=== PATIENT | female | born 1980 | race Caucasian/White ===

== ENCOUNTER 2024-09-08 10:26 | Outpatient (CLI) | payer OTHER, SELFPAY ==
[2024-09-08 13:25] LABS: Basophils Absolute Auto 0.1 K/mm3 (0.0-0.1); Basophils Percent Auto 1.3 % (0.2-1.2); Eosinophils Absolute Auto 0.3 K/mm3 (0-0.3); Eosinophils Percent Auto 4.4 % (0-4.4); Hematocrit 43.2 % (37.0-52.0); Hemoglobin 13.6 g/dL (12.0-18.0); Immature Granulocyte Absolute 0.02 K/mm3 (0.00-0.031); Immature Granulocyte Percent A 0.3 % (0-0.5); Lymphocytes Absolute Auto 2.77 K/mm3 (0.9-3.2); Lymphocytes Percent Auto 39.6 % (18.3-44.2); Mean Corpuscular HGB Conc 31.5 g/dl (32-36); Mean Corpuscular Hemoglobin 29.8 pg (26-34); Mean Corpuscular Volume 94.7 fl (80-100); Mean Platelet Volume 11.7 fl (7.4-10.4); Monocytes Absolute Auto 0.5 K/mm3 (0.1-0.6); Monocytes Percent Auto 7.3 % (2.6-8.5); Neutrophils Absolute Auto 3.3 K/mm3 (1.3-6.7); Neutrophils Percent Auto 47.1 % (45.5-73.1); Platelet Count Result 262 k/mm3 (150-375); Red Blood Count 4.56 M/mm3 (4.2-6.2); Red Cell Distribution Width 13.2 % (11.5-14.5)
[2024-09-08 20:31] LABS: Hemoglobin A1C 6.3 % (<5.7)
[2024-09-08 21:32] LABS: MALB Creatinine Ratio 11.6 mg/g (0-30); Microalbumin Urine Random 6.4 mg/L (0-16.7)
[2024-09-08 21:55] LABS: Alanine Aminotransferase 38 U/L (6-50); Albumin Level 4.3 g/dL (3.5-5.1); Alkaline Phosphatase 78 U/L (38-126); Anion Gap 10 mmol/L (4-12); Aspartate Amino Transferase 43 U/L (17-59); Bilirubin,Total 0.6 mg/dL (0.2-1.3); Blood Urea Nitrogen 10 mg/dL (7-20); Calcium 9.4 mg/dL (8.4-10.2); Carbon Dioxide 24 mmol/L (22-30); Chloride 107 mmol/L (96-107); Cholesterol 174 mg/dL (0-200); Estimated Glomerular Filt Rate > 60; Glucose 95 mg/dL (65-110); HDL Direct 31 mg/dL; Potassium 4.5 mmol/L (3.4-5.0); Sodium 141 mmol/L (137-145); Triglycerides 113 mg/dL (<150)
[2024-09-08 22:03] LABS: LDL Cholesterol Direct 110 mg/dL
[2024-09-08 22:19] LABS: Vitamin D 25 Hydroxy 14.2 ng/mL
== END 2024-09-08 10:27 | disposition home or self-care (01) ==
LOC: ANHGOSHLAB 10:27
PROVIDERS: PCP Internal Medicine; Visit Provider Clinical Nurse Specialist
DX: R53.83 Other fatigue (principal); R73.01 Impaired fasting glucose; E55.9 Vitamin D deficiency, unspecified; Z13.228 Encounter for screening for other metabolic disorders; Z13.220 Encounter for screening for lipoid disorders
CPT/HCPCS: 36415; 80053; 80061; 82043; 82306; 83036; 84443; 85025

== ENCOUNTER 2024-12-22 09:58 | Outpatient (CLI) | payer OTHER, SELFPAY ==
--- OUTSIDE RECORDS SUMMARY | 2024-12-22 11:00 | XMS_ITS | Encounter Summary ---
Author Organization [facility] Address [address] [place] [address] Care Team Providers Care Coin Machine Service Repairer Name Role Phone Lanette Perales DO Primary Care Provider + Encounter Details Date Type Department Care Team (Late st Contact Info) Description 10/09/2024 Chart Note [facility] [place] Bariatrics and General Surgery at the [facility] [address] [place] [address] Evy Salazar MD [address] [place] [address] Social History Tobacco Use Types Packs/Day Years Used Date Smoking Tobacco: Every Day Cigarettes Smokeless Tobacco: Never Alcohol Use Standard Drinks/Week Comments Yes 0 (1 standard drink = 0.6 oz pur e alcohol) Comments No Sex and Gender Information Value Date Recorded Sex Assigned at Not on file Legal Sex Female 7:40 AM CDT Gender Identity Not on file Sexual Orientation Not on file documented as of this encounter Plan of Treatment Not on file documented as of this encounter Visit Diagnoses Not on filedocumented in this encounter Care Teams Coin Machine Service Repairer Relationship Specialty Start Date End Date Lanette Perales DO PCP - General Internal Medicine 02/09/21 12/20/24 documented as of this encounter
--- OUTSIDE RECORDS SUMMARY | 2024-12-22 11:00 | XMS_ITS | Clinical Summary ---
Author Organization [facility] (Formerly [facility]) [address] Address [address] [address] Care Team Providers Care Sustainability Director Name Role Phone Unavailable Primary Care Provider Unavailabl e Allergies No known active allergies Medications diphenhydrAMINE (BENADRYL) 25 mg capsule Take 2 Capsules (50 mg) by mouth every 6 hours as needed for Allergies. 20 Capsule 1 Active tirzepatide, weight loss, (Zepbound) 5 mg/0.5 mL Pen Injector Inject 5 mg by subcutaneous injection every 7 days. Active pantoprazole (Protonix) 20 mg Tablet, Delayed Release (E.C.) Take 1 Tablet (20 mg) by mouth daily. 90 Tablet 1 5 Active Active Problems Problem Noted Date Diagnosed Date Tobacco use 12/29/2020 Body mass index (BMI) of 40.1 to 44.9 in adult 0 12/29/2020 Encounters Date Type Department Care Team Description 12/18/2024 7:57 AM CDT Anesthesia Event [facility] [address] [place] [phone] Isidoro Wallace MD 12/18/2024 7:50 AM CDT - 12/18/2024 8:15 AM CDT Surgery [facility] [place] [address] [address] [place] [address] Evy Salazar MD ESOPHAGOGASTRODUODENOSCOPY 12/18/2024 6:38 AM CDT - 12/18/2024 8:53 AM CDT Hospital Encounter [facility] [address] [place] [address] Evy Salazar MD Chronic gastroesophageal reflux disease without esophagitis Discharge Disposition: Home or Self Care 12/18/2024 Orders Only [facility] Bariatrics and General Surgery at the [facility] [address] [place] [address] Marylou Medellin, FAITH 12/11/2024 Orders Only [facility] Bariatrics and General Surgery at the [facility] [address] [place] [address] Neda Barba, FAITH Hx of smoking (Primary Dx) 12/11/2024 Abstract [facility] Bariatrics and General Surgery at the [facility] [address] [place] [address] Nead Barba RN 11/25/2024 External Device Data ST[facility] ABSTRACTION Provider, Abstract 11/19/2024 2:00 PM CDT Video Visit [facility] Bariatrics and General Surgery at the [facility] [address] [place] [address] Hazel Hall, RD Morbid obesity with body mass index of 40.0-49.9 (CMS/HCC) (Primary Dx) 11/12/2024 Abstract [facility] Bariatrics and General Surgery at the [facility] [address] [place] [address] Evy Salazar MD 11/10/2024 External Device Data [facility] ABSTRACTION Provider, Abstract 10/27/2024 8:00 AM CDT Video Visit [facility] Bariatrics and General Surgery at the [facility] [address] [place] [address] Hazel Hall, RD Morbid obesity with body mass index of 40.0-49.9 (CMS/HCC) (Primary Dx) 10/27/2024 External Device Data [facility] ABSTRACTION Provider, Abstract 10/27/2024 External Device Data [facility] ABSTRACTION Provider, Abstract 10/27/2024 External Device Data [facility] ABSTRACTION Provider, Abstract 10/22/2024 2:30 PM CDT Office Visit [facility] Bariatrics and General Surgery at the [address] [place] [address] Evy Salazar MD Morbid obesity with body mass index of 40.0-49.9 ([facility]) (Primary Dx); Tobacco use; Gastroesophageal reflux disease, unspecified whether esophagitis present; Prediabetes 10/22/2024 Abstract [facility] Bariatrics and General Surgery at the [address] [place] [phone] Marylou Medellin RN 10/13/2024 Chart Note [facility] Bariatrics and General Surgery at the [address] [place] [phone] Evy Salazar MD 10/09/2024 Chart Note [facility] Bariatrics and General Surgery at the [address] [place] [phone] Evy Salazar MD 10/01/2024 Abstract [facility] Bariatrics and General Surgery at the [address] [place] [phone] Evy Salazar MD from Last 3 Months Family History Medical History Relation Name Comments Cancer Father Diabetes Father Hypertension Father Healthy Mother Breast Cancer Neg Hx Relation Name Status Comments Father Mother Alive Social History Tobacco Use Types Packs/Day Years Used Date Smoking Tobacco: Every Day Cigarettes Smokeless Tobacco: Never Tobacco Cessation:Ready to Q uit: No; Counseling Given: Yes Alcohol Use Standard Drinks/Week Comments Yes 0 (1 standard drink = 0.6 oz pur e alcohol) Feeling Safe Answer Date Recorded Are you in a relationship wi th someone who hurts you emotionally and/or physically? No 12/18/2024 Comments No Sex and Gender Information Value Date Recorded Sex Assigned at Not on file Legal Sex Female 7:40 AM CDT Gender Identity Not on file Sexual Orientation Not on file Last Filed Vital Signs Vital Sign Reading Time Taken Comments Blood Pressure 107/81 12/18/2024 8:42 AM CDT Pulse 70 12/18/2024 7:22 AM CDT Temperature 36.6 C (97.9 F) 12/18/2024 8:10 AM CDT Respiratory Rate 18 12/18/2024 8:42 AM CDT Oxygen Saturation 93% 12/18/2024 8:42 AM CDT Inhaled Oxygen Concentration - - Weight 110.2 kg (243 lb) 12/18/2024 7:22 AM CDT Height 165.1 cm (5' 5) 12/18/2024 7:22 AM CDT Body Mass Index 40.44 12/18/2024 7:22 AM CDT Plan of Treatment Health Maintenance Due Date Last Done Comments DTAP/TDAP/TD VACCINES (2 - Tdap) 01/19/1993 01/18/1993 HEPATITIS B VACCINES (1 of 3 - 19+ 3-dose series) 1997 COLORECTAL SCREENING 11/01/2023 Colorectal Cancer Screening 11/01/2023 FIT-DNA Q 3 years 11/01/2023 FIT/FOBT Q 1 year 11/01/2023 Flex Sig/CT Colonography Q 5 years 11/01/2023 Pre-Diabetes and Diabetes Screening 12/30/2023 12/29/2020 INFLUENZA VACCINE (#1) 2024 PAP SMEAR 03/15/2024 03/15/2021 BREAST CANCER SCREENING 07/26/2024 07/26/19 24, 07/26/2023, 04/26/2021, Additional history exists CERVICAL CANCER SCREENING 03/15/2026 HPV/Cotest (21-29) 03/15/2026 03/15/2021 HPV/Cotest (30-65) 03/15/2026 03/15/2021 HPV VACCINES Aged Out No longer eligi ble based on patient's age to complete this topic Procedures Procedure Name Priority Date/Time Associated Diagnosis Comments UPPER ENDOSCOPY REPORT 12/18/2024 8:11 AM CDT PATHOLOGY Pathology 12/18/2024 8:07 AM CDT Chronic gastroesophageal reflux disease without esophagitis WA EGD INTRMURAL US NEEDLE ASPIRATE/BIOPSY ESOPHAGS 12/18/2024 7:50 AM CDT Chronic gastroesophageal reflux disease without esophagitis MAMMO DIAG UNI LEFT 3D NARA W OR WO CAD Routine 04/26/2021 2:29 PM CDT Abnormal finding on breast imaging CERV/VAG CYTO SCREEN PAP W/HPV Routine 03/15/2021 3:27 PM CDT Well woman exam HEMOGLOBIN A1C Routine 12/29/2020 3:43 PM CDT from Last 3 Months or Most Recently Relevant to Health Maintenance Results * UPPER ENDOSCOPY REPORT (12/18/2024 8:11 AM CDT) Narrative Procedure Note Evy Salazar MD - 12/18/2024 8:[address] [facility] Endoscopy Patient Name: Sonia Andre Procedure Date: 12/18/2024 Date of : 1980 Attending MD: Evy Salazar , , Procedure: Upper GI endoscopy Indications: Heartburn, Preoperative assessment for bariatric surgery to treat morbid obesity Providers: Evy Salazar Referring MD: Medicines: Monitored Anesthesia Care Complications: No immediate complications. Procedure: Informed consent was obtained for the procedure, including moderate sedation after risks were discussed. Based on the pre-procedure assessment, including review of the patient's medical history, medications, allergies, and review of systems, the patient was deemed to be an appropriate candidate for sedation. A timeout was performed. Continuous ECG monitoring, pulse oximetry, blood pressure monitoring, and direct observation were performed. The was introduced through the mouth, and advanced to the second part of duodenum. The upper GI endoscopy was accomplished without difficulty. The patient tolerated the procedure fairly well. Estimated Blood Loss: Estimated blood loss was minimal. Findings: The esophagus was normal. A medium amount of food (residue) was found in the entire examined stomach. Diffuse mild inflammation characterized by erythema, friability and granularity was found in the entire examined stomach. Biopsies were taken with a cold forceps for histology. Estimated blood loss was minimal. The examined duodenum was normal. The cardia and gastric fundus were normal on retroflexion. Impression: - Normal esophagus. - A medium amount of food (residue) in the stomach. - Gastritis, characterized by erythema, friability and granularity. Biopsied. - Normal examined duodenum. Recommendation: - Patient has a contact number available for emergencies. The signs and symptoms of potential delayed complications were discussed with the patient. Return to normal activities tomorrow. Written discharge instructions were provided to the patient. - Use Protonix (pantoprazole) 20 mg PO daily. - Await pathology results. - Return to Bariatric clinic after studies are complete. Evy Salazar, 12/18/2024 8:10:44 AM This report has been signed electronically. Number of Addenda: [address]; [place] [address] Evy Salazar MD GI PROCEDURE ORDERABLES F inal Result * PATHOLOGY (12/18/2024 8:07 AM CDT) CASE REPORT Surgical Pathology R eport Case: [id number] Authorizing Provider: Evy Salazar MD Collected: 12/18/2024 08:07 AM Ordering Location: [facility] [address] Received: 12/18/2024 10:14 AM Pathologist: Jin Qureshi MD Specimen: Stomach, bxs 5 1:00 PM CDT [facility] FINAL DIAGNOSIS Gastric, biopsy: - Unremarkable gastric mucosa 1:00 PM T [facility]ice [employer] [facility] at 1300 CDT GROSS DESCRIPTION Received in one container labeled Sonia Doddhogne and stomach biopsies is 1 piece of pink-colon tissue measuring 0.6 x 0.2 x 0.2 cm. It is entirely submitted in cassette A1. EL 5 1:00 PM [facility] MICROSCOPIC DESCRIPTION The slides are labeled [id number] and Sonia Andre. Sections show gastric mucosa without significant epithelial reactivity. There is no significant active inflammation. No Helicobacter organisms are identified on H&E stained slide. Negative for intestinal metaplasia and dysplasia. 5 1:00 PM [facility] OPERATIVE PROCEDURE 1: ESOPHAGOGASTRODUODENOSCOP Y 5 1:00 PM [facility] CLINICAL INFORMATION A Gastritis, r/o h.pylori Gastritis, r/o h.pylori Chronic gastroesophageal reflux disease without esophagitis [K21.9] K21.9-Chronic gastroesophageal reflux disease without esophagitis 5 1:00 PM [facility] COMMENT Special stain, immunohistochemical, and/or in situ hybridization results are interpreted with controls that demonstrate appropriate staining reactions. Note on use of immunohistochemistry reagents and in situ hybridization probes: These tests were developed and their performance characteristics determined by [facility], Department of Laboratory Medicine. It has not been cleared or approved by the U.S. Food and Drug Administration. The FDA has determined that such clearance or approval is not necessary. The test is used for clinical purposes. It should not be regarded as investigational or for research. This laboratory is certified to perform high complexity testing. Frozen section/operating room consultation, gross examination and dissection, and case sign out may have been performed in part or completely in the following laboratories: [facility], CLIA #[id number] [address] [place] [address] [facility], [place] #[id number] [address] [place] [address] [facility], [place] #[id number] [address] [place] [address] This report was created with the [employer] voice-activated dictation system. Inherent to this system is the possibility of syntax, grammar, punctuation and other errors that could impact the interpretation of the report. If there are interpretative questions about aspects of this report, please contact the performing pathologist. 5 1:00 PM [facility] Tissue ENTIRE STOMACH / Unknown Collection / Unknown 12/18/2024 8:07 AM CDT 12/18/2024 10:14 AM CDT Comment:Gastritis, r/o h.pyl des Evy Salazar MD PATHOLOGY/CYTOLOGY ORDERA BLES Final Result [facility]# [id number] [address] [facility] [place] [address] * (ABNORMAL) MAMMO DIAG UNI LEFT 3D NARA W OR WO CAD (04/26/2021 2:29 PM CDT) Anatomical Region Laterality Modality Breast Left Mammography 04/26/2021 2:29 PM CDT Narrative 04/26/2021 2:40 PM CDT MAMMO DIAG UNI LEFT 3D NARA W OR WO CAD Ordering provider: LANETTE RUIZ History: Follow up abnormal baseline screening mammogram. Comparison: 04/07/2021 Additional views of left breast demonstrate minimal residual asymmetric tissue left upper posterior breast. No discrete mass or architectural distortion. BI-RADS 3: Probably benign finding. Six-month follow-up mammogram left breast recommended. Location 11 Result [facility] Lanette Ruiz DO MAMMO ORDERABLES Final R esult * CERV/VAG CYTO SCREEN PAP W/HPV (03/15/2021 3:27 PM CDT) CLINICAL INFORMATION [facility] Comment:Routine exam LAST MENSTRUAL PERIOD [facility] Comment:[id number] PREV PAP: [facility] Comment:INFORMATION NOT PROV IDED PREV BX: [facility] Comment:INFORMATION NOT PROV IDED SOURCE [facility] Comment:ENDOCERVIX ADEQUACY: [facility] Comment: Satisfactory for evaluation. Endocervical/transformation zone component present. PAP INTERP [facility] Comment:Negative for intraep ithelial lesion or malignancy. COMMENT [facility] Comment: This Pap test has been evaluated with computer assisted technology. LIBRARIAN SPECIAL COLLECTIONS: [facility] Comment: MEF, CT(ASCP) CT screening location: [place] [address] [place] [address] SEE NOTE [facility] Comment: EXPLANATORY NOTE: The Pap is a screening test for cervical cancer. It is not a diagnostic test and is subject to false negative and false positive results. It is most reliable when a satisfactory sample, regularly obtained, is submitted with relevant clinical findings and history, and when the Pap result is evaluated along with historic and current clinical information. HPV E6/E7 Not Detected Not Detected [facility] Comment: Methodology: Pot Holder Binder-Mediated Amplification This assay detects E6/E7 viral messenger RNA (mRNA) from 14 high-risk HPV types (16,18,31,33,35,39,45,51,52,56,58,59,66,68). The analytical performance characteristics of this assay have been determined by [facility]. The modifications have not been cleared or approved by the FDA. This assay has been validated pursuant to the CLIA regulations and is used for clinical purposes. For additional information, please refer to http://education.Meshfire/faq/SYH118n6 (This link if provided for information/ educational purposes only.) Test Performed at: [facility] [address] [place] [address] Isidoro Kauffman D.O., MPH SL Genital SWAB OF ENDOCERVIX / Unknown 03/15/2021 3:27 PM CDT 03/16/2021 7:18 AM CDT Julia Birch DO PATHOLOGY/CYTOLOGY ORDERABLES Fi nal Result [facility] [address] [place] [address] * HEMOGLOBIN A1C (12/29/2020 3:43 PM CDT) HEMOGLOBIN A1C 5.5 <5.7 % of total Hgb 12/30/2020 10:03 AM CDT [facility] Comment: For the purpose of screening for the presence of diabetes: <5.7% Consistent with the absence of diabetes 5.7-6.4% Consistent with increased risk for diabetes (prediabetes) > or =6.5% Consistent with diabetes This assay result is consistent with a decreased risk of diabetes. Currently, no consensus exists regarding use of hemoglobin A1c for diagnosis of diabetes in children. According to [place] Diabetes Association (ADA) guidelines, hemoglobin A1c <7.0% represents optimal control in non- diabetic patients. Different metrics may apply to specific patient populations. Standards of Medical Care in Diabetes(ADA). Test Performed at: [facility] [address] [place] [address] Isidoro Kauffman D.O., MPH 12/29/2020 3:43 PM CDT 12/30/2020 3:31 AM CDT us Lanette Ruiz DO CHEMISTRY ORDERABLES Fin al Result [facility] [address] [place] [address] [facility] [address] [place] [address] from Last 3 Months or Most Recently Relevant to Health Maintenance Insurance Advance Directives For more information, please contact: [phone] * Full Code (Latest Code Status on File) Date Activated Date Inactivated Comments 12/18/2024 7:43 AM 12/18/2024 11:01 AM
[2024-12-22 19:36] LABS: Erythrocyte Sedimentation Rate 13 mm/hr (0-20)
[2024-12-22 21:55] LABS: Hemoglobin A1C 5.9 % (<5.7)
[2024-12-22 21:57] LABS: Rheumatoid Factor < 12.0 IU/ML (<12)
[2024-12-22 22:08] LABS: Anion Gap 9 mmol/L (4-12); Blood Urea Nitrogen 17 mg/dL (7-20); CRP < 0.5 mg/dL (<1.0); Calcium 9.4 mg/dL (8.4-10.2); Carbon Dioxide 23 mmol/L (22-30); Chloride 107 mmol/L (96-107); Estimated Glomerular Filt Rate > 60; Glucose 96 mg/dL (65-110); Potassium 4.6 mmol/L (3.4-5.0); Sodium 139 mmol/L (137-145)
[2024-12-23 07:59] LABS: ANA Cascade Screen NEGATIVE (NEGATIVE)
== END 2024-12-22 09:59 | disposition home or self-care (01) ==
LOC: ANHGOSHLAB 09:59
PROVIDERS: PCP Internal Medicine; Visit Provider Clinical Nurse Specialist
DX: R73.01 Impaired fasting glucose (principal); E66.813 Obesity, class 3; E66.01 Morbid (severe) obesity due to excess calories; Z68.42 Body mass index [BMI] 45.0-49.9, adult; Z82.61 Family history of arthritis
CPT/HCPCS: 36415; 80048; 83036; 85652; 86038; 86140; 86225; 86235; 86364; 86430

== ENCOUNTER 2025-02-15 00:48 | Day surgery (SDC) | payer OTHER, SELFPAY ==
[2025-02-02 13:18] VITALS: BMI 40.4
--- OUTSIDE RECORDS SUMMARY | 2025-02-15 00:51 | XMS_ITS | Encounter Summary ---
Author Organization [facility] Address [address] [place] [address] Care Team Providers Care Sock Examiner Name Role Phone Unavailable Primary Care Provider Unavailabl e Encounter Details Date Type Department Care Team (Latest Contact Info) Description 01/22/2025 Results Follow-Up [facility] Bariatrics and General Surgery at the [facility] [address] [place] [address] Marylou Medellin, FAITH NICOTINE SCREEN, URINE Social History Tobacco Use Types Packs/Day Years [...] as of this encounter Plan of Treatment Upcoming Encounters Date Type Department Care Team (Late st Contact Info) Description 02/18/2025 2:00 PM CDT Video Visit [facility] Bariatrics and General Surgery at the [facility] [address] [place] [address] [place] [address] documented as of this encounter Visit Diagnoses Not on filedocumented in this encounter
--- OUTSIDE RECORDS SUMMARY | 2025-02-15 00:51 | XMS_ITS | Clinical Summary ---
Author Organization [facility] Address [address] [place] [address] Care Team Providers Care Wrist Closer Name Role Phone Chanda Truong [facility] Primary Care Provider [phone] Allergies Active Allergy Reactions Criticality Noted Date Comments Egg-Derived Products Unknown Medium 05/29/2019 Medications fluticasone propionate (FLONASE) 50 MCG/ACT nasal sprayIndication s:Dysfunction of left eustachian tube 2 sprays by Nasal route daily. 16 g 2 3 Active methylPREDNISol one SINGH, (MEDROL DOSEPAK) 4 MG tabletIndicatio ns:Chest pain on breathing,Pleur isy Follow package directions 21 tablet 4 Active Active Problems Problem Noted Date Diagnosed Date Primary hypertension 10/11/2023 Tobacco abuse 06/27/2023 Class 3 severe obesity due t o excess calories without serious comorbidity with body mass index (BMI) of 40.0 to 44.9 in adult 06/27/2023 Borderline diabetes 05/29/2019 Resolved Problems Problem Noted Date Diagnosed Date Resolved Date Depressive disorder 05/07/2011 06/27/20 23 Immunizations Immunization Administration Dates Next Due Td (Tenivac) preservative free 01/18/1993 Family History Medical History Relation Comments Obesity Brother shantel Brother CABG Father Diabetes Father Lung Cancer Father Alcohol Abuse Maternal Grandfather COPD Maternal Grandmother Rheumatoid Arthritis Mother Diabetes Paternal Grandfather Heart Attack Paternal Grandfather Cancer Paternal Grandmother No Known Problems Sister Breast Cancer Neg Hx Relation Status Comments Brother Alive Father Maternal Grandfather Maternal Grandmother Mother Alive Paternal Grandfather Paternal Grandmother Sister Alive Social History Tobacco Use Types Packs/Day Years Used Date Smoking Tobacco: Former Cigarettes 2 25 Smokeless Tobacco: Never Tobacco Cessation:Counseling Given: No Alcohol Use Standard Drinks/Week Comments Yes 0 (1 standard drink = 0.6 oz pur e alcohol) AUDIT-C Answer Date Recorded Frequency of Alcohol Consumption 2-4 times a mon 05/29/2019 Average Number of Drinks 1 or 2 019 Frequency of Binge Drinking Not on file 05/09 PHQ-2 Answer Date Recorded Patient Health Questionnaire-2 Score 0 03/11/2024 Education Answer Date Recorded What is the highest level of school you have completed or the highest degree you have received? Some college, no degree 05/29/2019 Comments No Sex and Gender Information Value Date Recorded Sex Assigned at Not on file Legal Sex Female 7:09 PM CDT Gender Identity Not on file Sexual Orientation Not on file Last Filed Vital Signs Vital Sign Reading Time Taken Comments Blood Pressure 158/82 03/11/2024 5:19 PM CDT Pulse 67 03/11/2024 4:43 PM CDT Temperature 36.3 C (97.4 F) 03/11/2024 4:43 PM CDT Respiratory Rate 12 03/11/2024 4:43 PM CDT Oxygen Saturation 100% 03/11/2024 4:43 PM CDT Inhaled Oxygen Concentration - - Weight 122.9 kg (271 lb) 03/11/2024 4:43 PM CDT Height 166.4 cm (5' 5.5) 03/11/2024 4:43 PM CDT Body Mass Index 44.41 03/11/2024 4:43 PM CDT Plan of Treatment Health Maintenance Due Date Last Done Comments Cervical Cancer Screening Pa p Smear (Age 30 to 64) Every 3 Years 1978 Colorectal Cancer Screening Colonoscopy (10 Years) 1978 Annual Physical 1981 DTaP, Tdap and Td Vaccines ( 2 - Tdap) 01/19/1993 01/18/1993 Hepatitis C 1996 Hepatitis B Vaccines (1 of 3 - 19+ 3-dose series) 1997 Cervical Cancer Screening Pa p with HPV Testing (Age 30 to 64) Every 5 Years 2008 Cervical Cancer Screening with HPV 2008 COVID-19 Vaccine (2023-2 5 season) 2024 PHQ-2 (Physician Industry) 07/08/2024 03/11/2024 Mammogram Screening 07/26/2025 07/26/2023 Meningococcal B Vaccine Aged Out No l onger eligible based on patient's age to complete this topic Meningococcal Vaccine Aged Out No mendel arlen eligible based on patient's age to complete this topic Pneumococcal Vaccine: Pediat rics (0 to 5 Years) and At-Risk Patients (6 to 49 Years) Aged Out No longer eligi ble based on patient's age to complete this topic RSV Immunizations Under 20 Months Aged Out No longer eligible based on patient's age to complete this topic Procedures Procedure Name Priority Date/Time Associated Diagnosis Comments MG SCREENING W NARA ORQUIDEA DIGI Routine 07/26/2023 4:10 PM PRODUCT SUPPORT MANAGER Encounter for screening mammogram for malignant neoplasm of breast from Last 3 Months or Most Recently Relevant to Health Maintenance Results * MG SCREENING W NARA ORQUIDEA DIGI (07/26/2023 4:10 PM PRODUCT SUPPORT MANAGER) Anatomical Region Laterality Modality Breast Bilateral Computed Tomogra phy, Other 08/05/2023 1:04 PM PRODUCT SUPPORT MANAGER Narrative 08/05/2023 1:46 PM PRODUCT SUPPORT MANAGER EXAMINATION: Digital bilateral screening mammogram with 3-D tomosynthesis EXAM DATE/TIME: 07/26/2023 3:53 PM REASON FOR EXAM: screening COMPARISON: 04/07/2021.. 04/26/2021. Technique: Digital screening mammography of both breasts was performed in addition to 3-D Tomosynthesis technique. This study was read with the assistance of a computer-aided detection system. Tissue density: There are scattered areas of fibroglandular density. Findings: There is no new focal asymmetry, dominant mass lesion, area of skin thickening, or cluster of suspicious appearing calcifications in either breast to suggest malignancy. ===== IMPRESSION: ===== 1. Stable mammographic appearance with no new findings to suggest malignancy in either breast. Assessment: ACR BI-RADS 1 - NEGATIVE Recommendation: 1:Routine Screening Bilateral Comments: Ordered By: CHANDA TRUONG Interpreted By: Elliott Garsia, 08/05/2023 1:04 PM Chanda Truong ADAPTIVE PHYSICAL EDUCATION TEACHER MAMMO Final Res ult from Last 3 Months or Most Recently Relevant to Health Maintenance [place] [place] [address] Care Teams Wrist Closer Relationship Specialty Start Date End Date Chanda Truong FNP [address] [place] [address] [place] [address] PCP - General NURSE PRACTITIONER 06/27/23
--- OUTSIDE RECORDS SUMMARY | 2025-02-15 00:51 | XMS_ITS | Clinical Summary ---
Author Organization [facility] [address] Address [address] [address] Care Team Providers Care Folded Cloth Taper Name Role Phone Unavailable Primary Care Provider [...] Encounters Date Type Department Care Team Description 01/22/2025 Telephone [facility] Bariatrics and General Surgery at the [address] [place] [address] Marylou Medellin, RN Nurse Navigation 01/22/2025 Orders Only [facility] Bariatrics and General Surgery at the [facility] [address] [place] [address] Marylou Medellin RN Tobacco use (Primary Dx) 01/22/2025 Results Follow-Up [facility] Bariatrics and General Surgery at the [address] [place] [address] Marylou Medellin RN NICOTINE SCREEN, URINE 01/20/2025 External Device Data STL ABSTRACTION Provider, Abstract 01/20/2025 External Device Data STL ABSTRACTION Provider, Abstract 12/30/2024 2:00 PM CDT Video Visit [facility] Bariatrics and General Surgery at the [facility] [place] Medicine [address] [place] [address] Morbid obesity with body mass index of 40.0-49.9 ([facility]) (Primary Dx) 12/23/2024 External Device Data STL ABSTRACTION Provider, Abstract 12/18/2024 7:57 AM CDT Anesthesia Event [facility] [address] [place] [address] Isidoro Wallace MD 12/18/2024 7:50 AM CDT - 12/18/2024 8:15 AM CDT Surgery [facility] [address] [place] [address] Evy Salazar MD ESOPHAGOGASTRODUODENOSCOPY 12/18/2024 6:38 AM CDT - 12/18/2024 8:53 AM CDT Hospital Encounter [facility] [address] [place] [address] Evy Salazar MD Chronic gastroesophageal reflux disease without esophagitis Discharge Disposition: Home or Self Care 12/18/2024 Orders Only [facility] Bariatrics and General Surgery at the [facility] [place] [address] [place] [address] Marylou Medellin RN 12/11/2024 Orders Only [facility] Bariatrics and General Surgery at the [facility] [place] [address] [place] [address] Nead Barba RN Hx of smoking (Primary Dx) 12/11/2024 Abstract [facility] Bariatrics and General Surgery at the [address] [place] [address] Neda Barba RN 11/25/2024 External Device Data STL ABSTRACTION Provider, Abstract 11/19/2024 2:00 PM CDT Video Visit [facility] Bariatrics and General Surgery at the [address] [place] [address] Morbid obesity with body mass index of 40.0-49.9 (CMS/HCC) (Primary Dx) from Last 3 Months Family History Medical [...] 12/18/2024 7:22 AM CDT Plan of Treatment Upcoming Encounters Date Type Department Care Team (Late st Contact Info) Description 02/18/2025 2:00 PM CDT Video Visit [facility] Bariatrics and General Surgery at the [address] [place] [address] Rafael Hazel Rafael, RD [address] [place] [address] Health Maintenance Due Date Last Done Comments DTAP/TDAP/TD VACCINES (2 - Tdap) 01/19/1993 01/18/1993 HEPATITIS B VACCINES (1 of 3 - 19+ 3-dose series) 1997 COLORECTAL SCREENING 11/01/2023 Colorectal Cancer Screening 11/01/2023 FIT-DNA Q 3 years 11/01/2023 FIT/FOBT Q 1 year 11/01/2023 Flex Sig/CT Colonography Q 5 years 11/01/2023 Pre-Diabetes and Diabetes Screening 12/30/2023 12/29/2020 PAP SMEAR 03/15/2024 03/15/2021 BREAST CANCER SCREENING 07/26/2024 07/26/19, 07/26/2023, 04/26/2021, Additional history exists INFLUENZA VACCINE (#1) 2025 CERVICAL CANCER SCREENING 03/15/2026 HPV/Cotest (21-29) 03/15/2026 03/15/2021 HPV/Cotest (30-65) 03/15/2026 03/15/2021 HPV VACCINES Aged Out No longer eligi ble based on patient's age to complete this topic Procedures Procedure Name Priority Date/Time Associated Diagnosis Comments NICOTINE SCREEN, URINE Routine 01/15/2025 1:23 PM CDT Hx of smoking UPPER ENDOSCOPY REPORT 12/18/2024 8:11 AM CDT PATHOLOGY Pathology 12/18/2024 8:07 AM CDT Chronic gastroesophageal reflux disease without esophagitis RI EGD INTRMURAL US NEEDLE ASPIRATE/BIOPSY ESOPHAGS 12/18/2024 [...] Recently Relevant to Health Maintenance Results * NICOTINE SCREEN, URINE (01/15/2025 1:23 PM CDT) NICOTINE, URINE 126 ng/mL [facility] [place] COTININE, URINE 21 ng/mL [facility] [employer] [place] [id number], URINE 293 ng/mL [facility] [employer] [facility] [place] NORNICOTINE, URINE <2 ng/mL [facility] [employer] [place] NORCOTININE, URINE 20 ng/mL [facility] [employer] [facility] [place] ANABASINE, URINE <2 ng/mL [facility] [place] Comment: Individuals exposed to second hand or passive tobacco smoke may demonstrate concentrations of nicotine and metabolites greater than those indicated for non- smokers. Reference Ranges: Active Non-Smoker Tobacco User (ng/mL) (ng/mL) Nicotine <17 200-700 Cotinine <20 300-1300 8-UE-Uuqyqjpf <50 3000-82005 Nor-Nicotine <2 30-900 Nor-Cotinine <2 Not Established Anabasine <2 10-500 This test was developed and its analytical performance characteristics have been determined by [facility] [place]. It has not been cleared or approved by the U.S. Food and Drug Administration. This assay has been validated pursuant to the CLIA regulations and is used for clinical purposes. Test Performed at: [facility] [address] [facility] [place] Blade Henson M.D.,PhD Urine URINE SPECIMEN OBTAINED BY CLEAN CATCH PROCEDURE / Unknown 01/15/2025 1:23 PM CDT 01/15/2025 1:24 PM CDT us Evy Salazar MD URINE ORDERABLES Final Re sult [facility] [phone] [facility] [address] [facility] [place] [address] * UPPER ENDOSCOPY REPORT (12/18/2024 8:11 AM CDT) Narrative Procedure Note Evy Salazar MD - 12/18/2024 8:11 AM CDT [facility] Patient Name: Sonia Andre Procedure Date: [...] electronically. Number of Addenda: [address]; [place] [address] Evy Salazar MD GI PROCEDURE ORDERABLES F inal Result * PATHOLOGY (12/18/2024 8:07 AM CDT) CASE REPORT Surgical Pathology R eport Case: [id number] Authorizing Provider: Evy Salazar MD Collected: 12/18/2024 08:07 AM Ordering Location: [facility] Harjit Reza Received: 12/18/2024 10:14 AM Pathologist: Jin Qureshi MD Specimen: Stomach, bxs 1:00 PM T [facility] FINAL DIAGNOSIS Gastric, biopsy: - Unremarkable gastric mucosa 5 1:00 PM T [facility] at 1300 CDT GROSS DESCRIPTION Received in one container labeled Sonia Andre and stomach biopsies is 1 piece of pink-colon tissue measuring 0.6 x 0.2 x 0.2 cm. It is entirely submitted in cassette A1. [facility] 5 1:00 PM T [facility] MICROSCOPIC DESCRIPTION The slides are labeled [id number] and Sonia Andre. Sections show gastric mucosa without significant epithelial reactivity. There is no significant active inflammation. No Helicobacter organisms are identified on H&E stained slide. Negative for intestinal metaplasia and dysplasia. 5 1:00 PM T [facility] OPERATIVE PROCEDURE 1: ESOPHAGOGASTRODUODENOSCOP Y 5 1:00 PM CDT [facility] CLINICAL INFORMATION A Gastritis, r/o h.pylori Gastritis, r/o h.pylori Chronic gastroesophageal reflux disease without esophagitis [K21.9] K21.9-Chronic gastroesophageal reflux disease without esophagitis 1:00 PM CDT [facility] COMMENT Special stain, immunohistochemical, and/or in situ hybridization results are interpreted with controls that demonstrate appropriate staining reactions. Note on use of immunohistochemistry reagents and in situ hybridization probes: These tests were developed and their performance characteristics determined by [facility], Department of Laboratory Medicine. It has not [...] part or completely in the following laboratories: [facility], CLIA #[id number] [address] [place] [address] [facility], CLIA #[id number] [address] [place] [address] [facility], CLIA #[id number] [address] [place] [address] This report was created with the [employer] voice-activated dictation system. Inherent to this system is the possibility of syntax, grammar, punctuation and other errors that could impact the interpretation of the report. If there are interpretative questions about aspects of this report, please contact the performing pathologist. 5 1:00 PM T [facility] Tissue ENTIRE STOMACH / Unknown Collection / Unknown 12/18/2024 8:07 AM CDT 12/18/2024 10:14 AM CDT Comment:Gastritis, r/o h.pyl des us Evy aSlazar MD PATHOLOGY/CYTOLOGY ORDERA BLES Final Result [facility] CLIA# [id number] [address] [address] * (ABNORMAL) MAMMO DIAG UNI LEFT 3D [...] follow-up mammogram left breast recommended. Location 11 us Lanette Ruiz DO MAMMO ORDERABLES Final R esult * CERV/VAG CYTO SCREEN PAP W/HPV (03/15/2021 3:27 PM CDT) CLINICAL INFORMATION [facility] Comment:Routine exam LAST MENSTRUAL PERIOD [facility] Comment:[id number] PREV PAP: [facility] Comment:INFORMATION NOT PROV IDED PREV BX: [facility] Comment:INFORMATION NOT PROV IDED SOURCE [facility] Comment:ENDOCERVIX ADEQUACY: [facility] Comment: Satisfactory for evaluation. Endocervical/transformation zone component present. PAP INTERP [facility] Comment:Negative for intraep ithelial lesion or malignancy. COMMENT [facility] Comment: This Pap test has been evaluated with computer assisted technology. PROFESSIONAL BONDSMAN: [facility] Comment: MEF, CT(ASCP) CT screening location: [place] [address] [address] [place] [address] SEE NOTE [facility] Comment: EXPLANATORY NOTE: The Pap is a [...] information. HPV E6/E7 Not Detected Not Detected [facility] Comment: Methodology: Joint Filler-Mediated Amplification This assay detects E6/E7 viral messenger RNA (mRNA) from 14 high-risk HPV types (16,18,31,33,35,39,45,51,52,56,58,59,66,68). The analytical performance characteristics of this assay have been determined by [facility]. The modifications have not been cleared or approved by the FDA. This assay has been validated pursuant to the CLIA regulations and is used for clinical purposes. For additional information, please refer to http://education.Arkeo/faq/XLC270y4 (This link if provided for information/ educational purposes only.) Test Performed at: [facility] [address] [place] [address] Isidoro Kauffman D.O., MPH Genital SWAB OF ENDOCERVIX / Unknown 03/15/2021 3:27 PM CDT 03/16/2021 7:18 AM CDT us Julia Birch DO PATHOLOGY/CYTOLOGY ORDERABLES Fi nal Result [facility] [address] [place] [address] * HEMOGLOBIN A1C (12/29/2020 3:43 PM CDT) HEMOGLOBIN A1C 5.5 <5.7 % of total Hgb 12/30/2020 10:03 AM CDT [facility] Comment: For the purpose of screening for the presence of diabetes: <5.7% Consistent with the absence of diabetes 5.7-6.4% Consistent with increased risk for diabetes (prediabetes) > or =6.5% Consistent with diabetes This assay result is consistent with a decreased risk of diabetes. Currently, no consensus exists regarding use of hemoglobin A1c for diagnosis of diabetes in children. According to [place] Diabetes Association (ADA) guidelines, hemoglobin A1c <7.0% represents optimal control in non- diabetic patients. Different metrics may apply to specific patient populations. Standards of Medical Care in Diabetes(ADA). Test Performed at: [facility] [id number] [place] [address] Isidoro Kauffman D.O., MPH 12/29/2020 3:43 PM CDT 12/30/2020 3:31 AM CDT us Lanette Ruiz DO CHEMISTRY ORDERABLES Fin al Result [facility] [id number] [address] [facility] [id number] [address] [id number] from Last 3 Months or Most Recently Relevant to Health Maintenance Insurance [employer] [facility] [address] Advance Directives For more information, please contact: [phone] * Full Code (Latest Code Status on File) Date Activated Date Inactivated Comments 12/18/2024 7:43 AM 12/18/2024 11:01 AM
--- OUTSIDE RECORDS SUMMARY | 2025-02-15 00:51 | XMS_ITS | Encounter Summary ---
Author Organization [facility] Address [address] [place] [address] Care Team Providers Care Parimutuel Ticket Cashier Name Role Phone Lanette Perales DO Primary Care Provider + Encounter Details Date Type Department Care Team (Late Contact Info) Description 10/09/2024 Chart Note [facility] Bariatrics and General Surgery at the [facility] [address] [place] [address] Evy Salazar MD [address] [place] [address] Social History Tobacco Use Types Packs/Day Years [...] [place] Bariatrics and General Surgery at the [facility] [address] [place] [address] [address] [place] [address] documented as of this encounter Visit Diagnoses Not on filedocumented in this encounter Care Teams Parimutuel Ticket Cashier Relationship Specialty Start Date End Date Lanette Perales DO PCP - General Internal Medicine 02/09/21 12/20/24 documented as of this encounter
[2025-02-15] MEDS: LACTATED RINGERS 1,000 ML 150 ML IV CONT (07:00)
--- NOTE | 2025-02-15 07:14 | P.PNAN_ITS ---
Anes - Initial Pre Proc Eval Procedure: Operation Date: 02/15/25 08:00 Proposed Procedures p Screening Colonoscopy - Gonzalo Douglas DO Date/Time: 02/15/25 07:14 Surgeon: Gonzalo Douglas DO Pre Op Diagnosis: Neoplasm screening Patient Data Age: 44 Gender: U Height: 1.65 m Weight: 110.3 kg Allergies Allergy/AdvReac Type Severity Reaction Status Date / Time No Known Allergies Allergy Verified 02/15/25 06:53 Home Medications ?Medication ?Instructions ?Recorded ?Confirmed ?Type tirzepatide (weight loss) 10 10 mg (0.5 mL) subcut WEEKLY #2 mL 02/02/25 Rx mg/0.5 mL subcutaneous pen injector (Zepbound) Patient hx anesthesia problems: none Family hx anesthesia problems: none Results Review: All pre-operative results and documents have been reviewed as part of the pre- operative evaluation. [facility] Past Medical History Medical History (Updated 12/22/24 @ 22:58 by FARTUN Heredia) Encounter to establish care Class 3 severe obesity due to excess calories with serious comorbidity and body mass index (BMI) of 45.0 to 49.9 in adult Sterilization Family History Family History Mother Heart disease Father Lung cancer Heart disease Hypertension Sibling Hypertension Depression with anxiety Grandparent Cancer Grandparent Alcoholism Social History Social History Smoking packs per day: 1 Smoking cigarettes per day: 20.0 Years smoked: 25 Smoking pack-years: 25.00 Smoking status: Current every day smoker Tobacco type: cigarettes Alcohol intake: never Substance use: never Substance use type: does not use Do You Feel Safe in your Home?: Yes Lack of Transportation: No Lack of Food: Sometimes True Current Housing: I Have Housing Concerned About Future Housing: No Difficulty Paying Gas/Electric Bills: No Difficulty Paying for Meds: YES Currently Unemployed: No Education: High School Diploma/GED Difficulty w/ Childcare or Family Care: No Living arrangements: with family Spiritual care concerns: No Anes - Eval Final PreProcedure Day of Procedure 02/15/25 07:14 Patient weight: obese Heart: regular rate and rhythm Lungs: clear to auscultation Airway: Mallampati scale class II Neurological: alert and oriented Last oral intake: >/= 8 hours ASA classification: III Emergent: no Anesthetic plan: proceed Anesthesia type and monitoring: general GIVS and standard monitoring Results Review: All pre-operative results and documents have been reviewed as part of the pre- operative evaluation. Informed Consent: The patient's anesthetic plan and its attendant risks and benefits were discussed with the patient/family/POA. Questions were solicited and answers provided to the satisfaction of the patient/family/POA.
[2025-02-15 07:35] VITALS: BP 128/73; PULSE 70; RESP 17; TEMP 36.2; O2SAT 100; BMI 38.9
--- NOTE | 2025-02-15 07:37 | SUR.PREOP ---
Bedside test completed, Result negative.
--- NOTE | 2025-02-15 07:54 | PM.IMHP ---
H&P: HPI History of Present Illness Date/Time: 02/15/25 07:54 Chief Complaint: screening for colorectal cancer Narrative: this is a 44-year-old woman who presents for her 1st colonoscopy. She denies any hematochezia or melena. She denies any family history of colon cancer. Review of Systems Review of Systems: All systems reviewed & are unremarkable except as noted in HPI and below Constitutional: Constitutional: Denies chills, Denies fever(s), Denies headache(s) and Denies weight loss Eyes: Eyes: Denies change in vision ENT: Denies dizziness, Denies headache(s), Denies neck mass and Denies throat swelling Cardiovascular: Cardiovascular: Denies chest pain, Denies lightheadedness and Denies dyspnea Respiratory: Respiratory: Denies cough, Denies dyspnea and Denies wheezing Gastrointestinal: Gastrointestinal: Denies abdominal pain, Denies change in bowel habits, Denies nausea and Denies vomiting Genitourinary: Genitourinary: Denies hematuria and Denies dysuria Musculoskeletal: Musculoskeletal: Reports as per HPI Integumentary/Breasts: Skin/Breast: Reports as per HPI Neurologic: Denies dizziness and Denies headache(s) Allergic/Immunologic: Allergic/Immunologic: Denies throat swelling and Denies wheezing [facility] Past Medical History Medical History (Updated 12/22/24 @ 22:58 by JAVON Heredia-Quentin) Encounter to establish care Class 3 severe obesity due to excess calories with serious comorbidity and body mass index (BMI) of 45.0 to 49.9 in adult Sterilization Family History Family History Mother Heart disease Father Lung cancer Heart disease Hypertension Sibling Hypertension Depression with anxiety Grandparent Cancer Grandparent Alcoholism Social History Social History Smoking packs per day: 1 Smoking cigarettes per day: 20.0 Years smoked: 25 Smoking pack-years: 25.00 Smoking status: Current every day smoker Tobacco type: cigarettes Alcohol intake: never Substance use: never Substance use type: does not use Do You Feel Safe in your Home?: Yes Lack of Transportation: No Lack of Food: Sometimes True Current Housing: I Have Housing Concerned About Future Housing: No Difficulty Paying Gas/Electric Bills: No Difficulty Paying for Meds: YES Currently Unemployed: No Education: High School Diploma/GED Difficulty w/ Childcare or Family Care: No Living arrangements: with family Spiritual care concerns: No Meds Home Medications and Allergies Home Medications ?Medication ?Instructions ?Recorded ?Confirmed ?Type tirzepatide (weight loss) 10 10 mg (0.5 mL) subcut WEEKLY #2 mL 02/02/25 Rx mg/0.5 mL subcutaneous pen injector (Zepbound) Allergies Allergy/AdvReac Type Severity Reaction Status Date / Time No Known Allergies Allergy Verified 02/15/25 06:53 Vital Signs Vital Signs - 24 hr 02/15/25 07:35 Temperature 97.1 F Pulse Rate 70 Respiratory Rate 17 Blood Pressure 128/73 Pulse Oximetry 100 Oxygen Delivery Room Air Exam Const: General: no acute distress and alert Orientation/consciousness: patient oriented x3 HENMT: Head: normocephalic and atraumatic Ears: hearing grossly normal bilaterally Face/Nose/Sinus: Normal nares present Mouth: Yes Normal oral and palatal mucosa present Eyes: Periorbital: periorbital findings normal Sclera: sclerae normal EOM: EOMs intact bilaterally Neck: Neck: normal visual inspection, no lymphadenopathy and trachea midline Chest: Chest palpation & inspection: normal inspection of the chest Resp: Effort & Inspection: normal respiratory effort Auscultation: clear to auscultation bilaterally Cardio: Jugular venous distension: no JVD Rate: regular rate Rhythm: regular rhythm Heart sounds: S1 normal heart sound present and S2 normal heart sound present Peripheral pulses: Peripheral pulses 2+ throughout GI: Inspection: normal to inspection GI Palp: Yes Soft to palpation, No Tenderness to palpation present (GI), No Guarding due to palpation present (GI) and No Rebound tenderness present Percussion: Yes normal to percussion Auscultation: normal bowel sounds : General: Yes no CVA tenderness Back/Spine/Pelvis: Back: no CVA tenderness Neuro: General: patient oriented x3, no focal motor deficits and CN's II-XI intact bilaterally Cognition (Neuro): normal cognition Speech: normal speech Motor exam (neuro): 5/5 motor strength present throughout Extrem: General: capillary refill normal and no clubbing, cyanosis or edema Assessment and Plan Assessment and plan (1) Screening for colon cancer: Code(s): Z12.11 - Encounter for screening for malignant neoplasm of colon Status: Acute Assessment and Plan: I have recommended colonoscopy. I have discussed the procedure, risks, benefits, and alternatives. Questions were answered. Patient is agreeable to proceed.
--- NOTE | 2025-02-15 08:54 | S_PTH ---
PATIENT: Sonia Andre LOC: [facility] Roberts#:[id number] AGE/SX: 44/F ROOM: RE02/15/[address]: Gonzalo Douglas DO : 1980 BED: DIS: 02/15/2025 SPEC #: [id number] RECD: 02/15/25 10:31 STATUS: NOAH REQ #: [id number] ARY: 02/15/25 08:[address]: Gonzalo Douglas DEPT: [facility] Surgical RECD BY: Silvia Alvarez ENTERED: 02/15/25 10:32 SP TYPE: Surgical OTHR DR: Lenard Alvarado DO Tissues: A - Colon Polypectomy B - Colon Polypectomy C - Colon Polypectomy D - Colon Polypectomy E - Colon Polypectomy Procedures: Hematoxylin and Eosin Stain Gross and Microscopic Level 4
[2025-02-15 08:58] VITALS: BP 128/97; PULSE 83; RESP 18; O2SAT 100
[2025-02-15 09:08] VITALS: BP 109/60; PULSE 81; RESP 18; O2SAT 100
[2025-02-15 09:18] VITALS: BP 128/60; PULSE 90; RESP 17; O2SAT 100
== END 2025-02-15 09:32 | disposition home or self-care (01) ==
PROVIDERS: PCP Internal Medicine; Visit Provider Surgery
PROC: 0DJD8ZZ Inspection of Lower Intestinal Tract, Via Natural or Artificial Opening Endoscopic (ICD-10-PCS; CPT 45378; principal; 2025-02-15 08:00)
DX: Z12.11 Encounter for screening for malignant neoplasm of colon (principal); D12.0 Benign neoplasm of cecum; D12.3 Benign neoplasm of transverse colon; D12.5 Benign neoplasm of sigmoid colon; D12.8 Benign neoplasm of rectum; F17.210 Nicotine dependence, cigarettes, uncomplicated; E66.9 Obesity, unspecified; Z68.38 Body mass index [BMI] 38.0-38.9, adult; Z79.85 Long-term (current) use of injectable non-insulin antidiabetic drugs; Z80.1 Family history of malignant neoplasm of trachea, bronchus and lung; Z82.49 Family history of ischemic heart disease and other diseases of the circulatory system
CPT/HCPCS: 45385; 88305; J2003; J2704; J7120

== ENCOUNTER 2025-03-02 13:45 | Outpatient (CLI) | payer OTHER, SELFPAY ==
--- OUTSIDE RECORDS SUMMARY | 2025-03-02 13:56 | XMS_ITS | Clinical Summary ---
Author Organization [facility] [address] [place] [address] Care Team Providers Care Clinical Trial Data Manager Name Role Phone Unavailable Primary Care Provider [...] Care Team Description 01/22/2025 Telephone [facility] Bariatrics and General Surgery at the [address] [place] [address] Marylou Medellin, RN Nurse Navigation 01/22/2025 Orders Only [facility] Bariatrics and General Surgery at the [facility] [address] [place] [address] Marylou Medellin RN Tobacco use (Primary Dx) 01/22/2025 Results Follow-Up [facility] Bariatrics and General Surgery at the [address] [place] [address] Marylou Medellin RN NICOTINE SCREEN, URINE 01/20/2025 External Device Data STL ABSTRACTION Provider, Abstract 01/20/2025 External Device Data STL ABSTRACTION Provider, Abstract 12/30/2024 2:00 PM CDT Video Visit [facility] Bariatrics and General Surgery at the [facility] [address] [place] [address] Morbid obesity with body mass index of 40.0-49.9 ([facility]) (Primary Dx) 12/23/2024 External Device Data STL ABSTRACTION Provider, Abstract 12/18/2024 7:57 AM CDT Anesthesia Event [facility] [address] [place] [address] Isidoro Wallace MD 12/18/2024 7:50 AM CDT - 12/18/2024 8:15 AM CDT Surgery [facility] [address] [place] [address] Evy Salazar MD ESOPHAGOGASTRODUODENOSCOPY 12/18/2024 6:38 AM CDT - 12/18/2024 8:53 AM CDT Hospital Encounter [facility] [address] [place] [address] Evy Salazar MD Chronic gastroesophageal reflux disease without esophagitis Discharge Disposition: Home or Self Care 12/18/2024 Orders Only [facility] Bariatrics and General Surgery at the [facility] [address] [place] [address] Marylou Medellin RN 12/11/2024 Orders Only [facility] Bariatrics and General Surgery at the [facility] [address] [place] [address] Neda Barba RN Hx of smoking (Primary Dx) 12/11/2024 Abstract [facility] Bariatrics and General Surgery at the [facility] [address] [place] [address] Neda Barba RN from Last 3 Months Family History Medical [...] Screening 12/30/2023 12/29/2020 PAP SMEAR 03/15/2024 03/15/2021 Preventative Visit- Commercial 07/08/2024 03/15/2021 BREAST CANCER SCREENING 07/26/2024 07/26/19, 07/26/2023, [...] CDT Chronic gastroesophageal reflux disease without esophagitis [place] EGD INTRMURAL US NEEDLE ASPIRATE/BIOPSY ESOPHAGS 12/18/2024 [...] NICOTINE, URINE 126 ng/mL [facility] [employer] [place] COTININE, URINE 21 ng/mL [facility] [employer] [facility] [place] 3-ST-WZGZBCRG, URINE 293 ng/mL [facility] [employer] [facility] [place] NORNICOTINE, URINE <2 ng/mL [facility]/N [facility] [place] [place] NORCOTININE, URINE 20 ng/mL [facility] [place] [place] ANABASINE, URINE <2 ng/mL [facility] [place] [place] Comment: Individuals exposed to second hand or passive tobacco smoke may demonstrate concentrations of nicotine and metabolites greater than those indicated for non- smokers. Reference Ranges: Active Non-Smoker Tobacco User (ng/mL) (ng/mL) Nicotine <17 200-700 Cotinine <20 300-1300 7-EX-Nlfycukn <50 3000-45319 Nor-Nicotine <2 30-900 Nor-Cotinine <2 Not Established Anabasine <2 10-500 This test was developed and its analytical performance characteristics have been determined by [facility] [place], [place]. It has not been cleared or approved by the U.S. Food and Drug Administration. This assay has been validated pursuant to the CLIA regulations and is used for clinical purposes. Test Performed at: [facility] [address] [address] [facility] [place], [place] Blade Henson M.D.,PhD Urine URINE SPECIMEN OBTAINED BY CLEAN CATCH PROCEDURE / Unknown 01/15/2025 1:23 PM CDT 01/15/2025 1:24 PM CDT us Evy Salazar MD URINE ORDERABLES Final Re sult [facility] [phone] [facility] [address] [facility] [place], [place] * UPPER ENDOSCOPY REPORT (12/18/2024 8:11 AM CDT) Narrative Procedure Note Evy Salazar MD - 12/18/2024 8:11 AM CDT [facility] Endoscopy Patient Name: Sonia Andre Procedure Date: [...] of Addenda: [address]; [place] [address] Evy Salazar MD GI PROCEDURE ORDERABLES F inal Result * PATHOLOGY (12/18/2024 8:07 AM CDT) CASE REPORT Surgical Pathology R eport Case: [id number] Authorizing Provider: Evy Salazar MD Collected: 12/18/2024 08:07 AM Ordering Location: [facility] Received: 12/18/2024 10:14 AM Pathologist: Jin Qureshi MD Specimen: Stomach, bxs 5 1:00 PM CDT [facility] FINAL DIAGNOSIS Gastric, biopsy: - Unremarkable gastric mucosa 5 1:00 PM CDT [facility] at 1300 CDT GROSS DESCRIPTION Received in one container labeled Sonia Isaacne and stomach biopsies is 1 piece of pink-colon tissue measuring 0.6 x 0.2 x 0.2 cm. It is entirely submitted in cassette A1. ELH 5 1:00 PM CDT [facility] MICROSCOPIC DESCRIPTION The slides are labeled [id number] and Sonia Andre. Sections show gastric mucosa without significant epithelial reactivity. There is no significant active inflammation. No Helicobacter organisms are identified on H&E stained slide. Negative for intestinal metaplasia and dysplasia. 5 1:00 PM CDT [facility] OPERATIVE PROCEDURE 1: ESOPHAGOGASTRODUODENOSCOP Y 5 1:00 PM CDT [facility] CLINICAL INFORMATION A Gastritis, r/o h.pylori Gastritis, r/o h.pylori Chronic gastroesophageal reflux disease without esophagitis [K21.9] K21.9-Chronic gastroesophageal reflux disease without esophagitis 5 1:00 PM CDT [facility] COMMENT Special stain, immunohistochemical, and/or in situ hybridization results are interpreted with controls that demonstrate appropriate staining reactions. Note on use of immunohistochemistry reagents and in situ hybridization probes: These tests were developed and their performance characteristics determined by [facility], Department of Laboratory Medicine. It has not [...] part or completely in the following laboratories: [facility], CLIA #[id number] [address] [place] [address] [facility], [place] #[id number] [address] [place] [address] [facility], CLIA #[id number] [address] [place] [address] This report was created with the [employer] voice-activated dictation system. Inherent to this system is the possibility of syntax, grammar, punctuation and other errors that could impact the interpretation of the report. If there are interpretative questions about aspects of this report, please contact the performing pathologist. 1:00 PM CDT [facility] Tissue ENTIRE STOMACH / Unknown Collection / Unknown 12/18/2024 8:07 AM CDT 12/18/2024 10:14 AM CDT Comment:Gastritis, r/o h.pyl des Evy Salazar MD PATHOLOGY/CYTOLOGY ORDERA BLES Final Result [id number] [address] [place] [address] * (ABNORMAL) MAMMO DIAG UNI LEFT 3D [...] follow-up mammogram left breast recommended. Location 11 Lanette Ruiz DO MAMMO ORDERABLES Final R esult * CERV/VAG CYTO SCREEN PAP W/HPV (03/15/2021 3:27 PM CDT) CLINICAL INFORMATION [facility] Comment:Routine exam LAST MENSTRUAL PERIOD [facility] Comment:[id number] PREV PAP: [facility] Comment:INFORMATION NOT PROV IDED PREV BX: [facility] Comment:INFORMATION NOT PROV IDED SOURCE [facility] Comment:ENDOCERVIX ADEQUACY: [facility] Comment: Satisfactory for evaluation. Endocervical/transformation zone component present. PAP INTERP [facility] Comment:Negative for intraep ithelial lesion or malignancy. COMMENT [facility] Comment: This Pap test has been evaluated with computer assisted technology. INDEPENDENT DRIVER: [facility] Comment: MEF, CT(ASCP) CT screening location: [place] [address] [place] [address] SEE NOTE [facility] Comment: EXPLANATORY NOTE: The Pap is a [...] information. HPV E6/E7 Not Detected Not Detected [facility] Comment: Methodology: [employer]-Mediated Amplification This assay detects E6/E7 viral messenger RNA (mRNA) from 14 high-risk HPV types (16,18,31,33,35,39,45,51,52,56,58,59,66,68). The analytical performance characteristics of this assay have been determined by [facility]. The modifications have not been cleared or approved by the FDA. This assay has been validated pursuant to the CLIA regulations and is used for clinical purposes. For additional information, please refer to http://education.Wuzzuf.Global Velocity/faq/ZLJ142a5 (This link if provided for information/ educational purposes only.) Test Performed at: [facility] [address] [place] [address] Isidoro Kauffman D.O., MPH SL Genital SWAB OF ENDOCERVIX / Unknown 03/15/2021 3:27 PM CDT 03/16/2021 7:18 AM CDT us Julia Birch DO PATHOLOGY/CYTOLOGY ORDERABLES Fi nal Result Performing Organization Address City/[facility]/ZIP Co de Phone Number [facility] [address] [place] [address] * HEMOGLOBIN A1C (12/29/2020 3:43 PM CDT) HEMOGLOBIN A1C 5.5 <5.7 % of total Hgb 12/30/2020 10:03 AM CDT [facility] [place] Comment: For the purpose of screening for the presence of diabetes: <5.7% Consistent with the absence of diabetes 5.7-6.4% Consistent with increased risk for diabetes (prediabetes) > or =6.5% Consistent with diabetes This assay result is consistent with a decreased risk of diabetes. Currently, no consensus exists regarding use of hemoglobin A1c for diagnosis of diabetes in children. According to [place] Diabetes Association (ADA) guidelines, hemoglobin A1c <7.0% represents optimal control in non- diabetic patients. Different metrics may apply to specific patient populations. Standards of Medical Care in Diabetes(ADA). Test Performed at: [facility] [address] [place] [address] Isidoro Kauffman D.O., MPH 12/29/2020 3:43 PM CDT 12/30/2020 3:31 AM CDT Lanette Ruiz DO CHEMISTRY ORDERABLES Fin al Result Performing Organization Address City/[facility] Co de Phone Number [facility] [place] [address] [place] [address] [facility] [place] [address] [place] [address] from Last 3 Months or Most Recently Relevant to Health Maintenance [place] [address] [place] [id number] Advance Directives For more information, please contact: [phone] * Full Code (Latest Code Status on File) Date Activated Date Inactivated Comments 12/18/2024 7:43 AM 12/18/2024 11:01 AM
--- OUTSIDE RECORDS SUMMARY | 2025-03-02 13:56 | XMS_ITS | Encounter Summary ---
Author Organization [facility] Address [address] [place] [address] Care Team Providers Care Intellectual Property Paralegal Name Role Phone Unavailable Primary Care Provider Unavailabl e Encounter Details Date Type Department Care Team (Latest Contact Info) Description 01/22/2025 Results Follow-Up [facility] Bariatrics and General Surgery at the [facility] [address] [place] [address] Marylou Medellin, RN NICOTINE SCREEN, URINE Social History Tobacco Use [...]
--- OUTSIDE RECORDS SUMMARY | 2025-03-02 13:56 | XMS_ITS | Encounter Summary ---
Author Organization [facility] Address [address] [place] [address] Care Team Providers Care Instructional Supervisor Name Role Phone Lanette Perales DO Primary Care Provider + Encounter Details Date Type Department Care Team (Late st Contact Info) Description 10/09/2024 Chart Note [facility] Bariatrics and General Surgery at the [facility] [address] [place] [address] Evy Salazar MD [address] [place] [address] Social History Tobacco Use Types Packs/Day Years [...] on filedocumented in this encounter Care Teams Instructional Supervisor Relationship Specialty Start Date End Date Lanette Perales DO PCP - General Internal Medicine 02/09/21 12/20/24 documented as of this encounter
--- NOTE | 2025-03-02 14:38 | ECG_ITS ---
Test Date: 2025-03-02 14:54:10 Measurements Intervals [place] Rate: 68 P: 51 CA: 190 QRS: 43 QRSD: 85 T: 41 QT: 365 QTc: 390 Interpretive Statements SINUS RHYTHM POSSIBLE RIGHT VENTRICULAR CONDUCTION DELAY BORDERLINE ECG No previous ECG available for comparison Electronically Signed On 03-02-2025 15:08:51 CDT by Pedro Villalba D.O.
[2025-03-02 15:01] LABS: Hematocrit 43.5 % (37.0-47.0); Hemoglobin 14.0 g/dL (12.0-15.0)
[2025-03-02 15:45] LABS: Carcinoembryonic Antigen 4.0 ng/mL (0.0-3.0)
== END 2025-03-02 13:46 | disposition home or self-care (01) ==
LOC: ANHSURGERY 13:49
PROVIDERS: Anesthesiology; PCP Clinical Nurse Specialist; Visit Provider Surgery
DX: Z01.818 Encounter for other preprocedural examination (principal); D12.6 Benign neoplasm of colon, unspecified; Z72.0 Tobacco use
CPT/HCPCS: 36415; 82378; 85014; 85018; 86850; 86900; 86901; 93005

== ENCOUNTER 2025-03-10 13:47 | Inpatient (IN) | payer OTHER, SELFPAY ==
[2025-03-02 13:59] VITALS: BP 123/72; PULSE 77; RESP 16; TEMP 36.8; O2SAT 99; BMI 38.2
--- NOTE | 2025-03-02 14:13 | PC.NURSE ---
Report to the Outpatient Waiting Room, entrance under the green pavilion located off [facility], at time ___06:00am____ on date _ 03/10/25 . Planned Procedure Time: 07:30am .? Time changes happen often and if your time is changed the preop area will call you the afternoon before. - You and your visitor will be asked to self-screen and do not enter if you have any COVID symptoms. Please call surgeon if you need to reschedule. - A mask is optional within the hospital at this time. Patients may have clear liquids for 24 hours before and until 3 hours prior to surgery am of. (0430am) (Rectal/PO PREP PER DR NAVARRO office on paper- pt to review. Pt also aware of Ensure instructions pre and post op. - No smoking, or chewing tobacco (or any form of nicotine). No chewing gum, candy or mints am of surgery. Take only the following medications with a SIP of water on the morning of surgery: Antibiotics as prescribed that am per Dr Tilley DO NOT STOP ANY OF YOUR OTHER PRESCRIPTION MEDICATIONS PRIOR TO SURGERY EXCEPT THE FOLLOWING Hold all vitamins and supplements for 3 days per anesthesiologist. Medications to discontinue per physician Tirzepatide for 10 days prior per Anesthesia Date to take last dose 02/26/25. Please no make-up, nail bengali, hairspray, perfume, deodorant, or body powder the day of surgery.? No jewelry (including any body piercings) or valuables the day of surgery, leave them at home.? Please take a shower or bath the night before, or the morning of, surgery with an antibacterial soap- HIBICLEANSE- scrub per Dr TILLEY ? Wear comfortable, loose fitting clothing.? Overnight bag, tennis shoes, cell phone and metal cnc operator - Jewelry must be removed prior to entering the operating room.? Rings and piercings that are not removed may be cut off. - The hospital will not accept responsibility for valuables.? - Please leave all valuables, including medications, at home the day of surgery. If you are going home after surgery, a licensed lease purchase driver must drive you home.? - NO public transportation without another adult if you receive anesthesia. - We recommend that an adult stay with you for 24 hours following discharge. - We also recommend that you do not drive, make important decision, drink alcoholic beverages, or take any drugs that were not prescribed by your health care provider for at least 24 hours after your discharge time. Follow any additional instructions given to you from your surgeon. Telephone instructions given to _Pateint and asked if any additional questions and then verbalized understanding. Patient advised to call surgeon office or pre surgery nurse liaison [phone] if any additional questions.
[2025-03-10] VITALS (17 sets, daily range): BP systolic 101–135; BP diastolic 61–79; PULSE 69–84; RESP 12–18; TEMP 35.8–36.7; O2SAT 93–100; BMI 37.7
--- OUTSIDE RECORDS SUMMARY | 2025-03-10 02:03 | XMS_ITS | Encounter Summary ---
Author Organization [facility] Address [address] [place] [address] Care Team Providers Care Dairy Clerk Name Role Phone Unavailable Primary Care Provider Unavailabl e Encounter Details Date Type Department Care Team (Latest Contact Info) Description 01/22/2025 Results Follow-Up [facility] Bariatrics and General Surgery at the [facility] [address] [place] [address] Marylou Medellin, RN NICOTINE SCREEN, URINE Social [...]
--- OUTSIDE RECORDS SUMMARY | 2025-03-10 02:03 | XMS_ITS | Encounter Summary ---
Author Organization [facility] Address [address] [place] [address] Care Team Providers Care Dermatology Technician Name Role Phone Lanette Perales DO Primary Care Provider + Encounter Details Date Type Department Care Team (Late st Contact Info) Description 10/09/2024 Chart Note [facility] Bariatrics and General Surgery at the [facility] Medicine [address] [place] [address] Evy Salazar MD [address] [place] [address] Social History Tobacco Use Types Packs/Day Years [...] on filedocumented in this encounter Care Teams Dermatology Technician Relationship Specialty Start Date End Date Lanette Perales DO PCP - General Internal Medicine 02/09/21 12/20/24 documented as of this encounter
--- OUTSIDE RECORDS SUMMARY | 2025-03-10 02:03 | XMS_ITS | Clinical Summary ---
Author Organization [facility] Address [address] [place] [address] Care Team Providers Care Procedural Nurse Name Role Phone Chanda Truong [facility] Primary Care Provider [phone] Allergies Active Allergy Reactions Criticality Noted Date [...] 2008 Cervical Cancer Screening with HPV 2008 PHQ-2 (Physician [place]) 07/08/2024 03/11/2024 COVID-19 Vaccine (2023-2 5 season) 2025 Mammogram Screening 07/26/2025 07/26/2023 Meningococcal B Vaccine [...] NARA ORQUIDEA DIGI Routine 07/26/2023 4:10 PM DESCRIPTIVE CATALOG LIBRARIAN Encounter for screening mammogram for malignant neoplasm of breast from Last 3 Months or Most Recently Relevant to Health Maintenance Results * MG SCREENING W NARA ORQUIDEA DIGI (07/26/2023 4:10 PM DESCRIPTIVE CATALOG LIBRARIAN) Anatomical Region Laterality Modality Breast Bilateral Computed Tomogra phy, Other 08/05/2023 1:04 PM DESCRIPTIVE CATALOG LIBRARIAN Narrative 08/05/2023 1:46 PM DESCRIPTIVE CATALOG LIBRARIAN EXAMINATION: Digital bilateral screening mammogram with 3-D [...] Elliott Garsia, 08/05/2023 1:04 PM Chanda Truong [employer] SELLING FLOOR LEADER MAMMO Final Res ult from Last 3 Months or Most Recently Relevant to Health Maintenance [place] [address] Care Teams Procedural Nurse Relationship Specialty Start Date End Date Chanda Truong FNP [address] [place] [address] [place] [address] PCP - General NURSE PRACTITIONER 06/27/23
--- OUTSIDE RECORDS SUMMARY | 2025-03-10 02:03 | XMS_ITS | Clinical Summary ---
Author Organization [facility] [address] Address [address] [place] [address] Care Team Providers Care Shoeshiner Name Role Phone Unavailable Primary Care Provider [...] Type Department Care Team Description 01/22/2025 Telephone [facility] Bariatrics and General Surgery at the [address] [place] [address] Marylou Medellin, RN Nurse Navigation 01/22/2025 Orders Only [facility] Bariatrics and General Surgery at the [facility] [address] [place] [address] Marylou Medellin RN Tobacco use (Primary Dx) 01/22/2025 Results Follow-Up [facility] Bariatrics and General Surgery at the [address] [place] [address] Marylou Medellin RN NICOTINE SCREEN, URINE 01/20/2025 External Device Data [facility] ABSTRACTION Provider, Abstract 01/20/2025 External Device Data [place] ABSTRACTION Provider, Abstract 12/30/2024 2:00 PM CDT Video Visit [facility] Bariatrics and General Surgery at the [facility] Medicine [address] [place] [address] Morbid obesity with body mass index of 40.0-49.9 ([facility]) (Primary Dx) 12/23/2024 External Device Data STL ABSTRACTION Provider, Abstract 12/18/2024 7:57 AM CDT Anesthesia Event [facility] [address] [place] [address] Isidoro Wallace MD 12/18/2024 7:50 AM CDT - 12/18/2024 8:15 AM CDT Surgery [facility] [address] [place] [address] Evy Salazar MD ESOPHAGOGASTRODUODENOSCOPY 12/18/2024 6:38 AM CDT - 12/18/2024 8:53 AM CDT Hospital Encounter [facility] [address] [place] [address] Evy Salazar MD Chronic gastroesophageal reflux disease without esophagitis Discharge Disposition: Home or Self Care 12/18/2024 Orders Only [facility] Bariatrics and General Surgery at the [facility] Medicine [address] [place] [address] Marylou Medellin RN 12/11/2024 Orders Only [facility] Bariatrics and General Surgery at the [facility] Medicine [address] [place] [address] Neda Barba RN Hx of smoking (Primary Dx) 12/11/2024 Abstract [facility] Bariatrics and General Surgery at the [facility] [address] [place] [address] Neda Barba RN from Last [...] 07/26/19 24, 07/26/2023, 04/26/2021, Additional history exists INFLUENZA VACCINE [...] CDT Chronic gastroesophageal reflux disease without esophagitis AL EGD INTRMURAL US NEEDLE ASPIRATE/BIOPSY ESOPHAGS 12/18/2024 [...] NICOTINE, URINE 126 ng/mL [facility] [place] COTININE, URINE 21 ng/mL [facility] [place] [id number]-GO-[id number], URINE 293 ng/mL [facility] [place] NORNICOTINE, URINE <2 ng/mL [facility] [place] NORCOTININE, URINE 20 ng/mL [facility] [place] ANABASINE, URINE <2 ng/mL [facility] [place] [place] Comment: Individuals exposed to second hand or passive tobacco smoke may demonstrate concentrations of nicotine and metabolites greater than those indicated for non- smokers. Reference Ranges: Active Non-Smoker Tobacco User (ng/mL) (ng/mL) Nicotine <17 200-700 Cotinine <20 300-1300 0-HB-Kmoarsdm <50 3000-37654 Nor-Nicotine <2 30-900 Nor-Cotinine <2 Not Established Anabasine <2 10-500 This test was developed and its analytical performance characteristics have been determined by [facility] [place], [place]. It has not been cleared or approved by the U.S. Food and Drug Administration. This assay has been validated pursuant to the CLIA regulations and is used for clinical purposes. Test Performed at: [facility]/[place] [id number] [facility] [place], [place] Blade Henson M.D.,PhD Urine URINE SPECIMEN OBTAINED BY CLEAN CATCH PROCEDURE / Unknown 01/15/2025 1:23 PM CDT 01/15/2025 1:24 PM CDT Evy Salazar MD URINE ORDERABLES Final Re sult [facility] [phone] [facility] [employer]/[place] [id number] [facility] [place], [place] * UPPER ENDOSCOPY REPORT (12/18/2024 8:11 AM CDT) Narrative Procedure Note Evy Salazar MD - 12/18/2024 8:11 AM CDT [facility] Patient Name: Sonia Andre Procedure Date: [...] of Addenda: [address]; [place] [address] Evy Salazar MD GI PROCEDURE ORDERABLES F inal Result * PATHOLOGY (12/18/2024 8:07 AM CDT) CASE REPORT Surgical Pathology R eport Case: [id number] Authorizing Provider: Evy Salazar MD Collected: 12/18/2024 08:07 AM Ordering Location: [facility] Harjit Cobb Received: 12/18/2024 10:14 AM Pathologist: Jin Qureshi MD Specimen: Stomach, bxs 5 1:00 PM CDT [facility] FINAL DIAGNOSIS Gastric, biopsy: - Unremarkable gastric mucosa 5 1:00 PM CDT [facility] at 1300 CDT GROSS DESCRIPTION Received in one container labeled Sonia Andre and stomach biopsies is 1 piece of pink-colon tissue measuring 0.6 x 0.2 x 0.2 cm. It is entirely submitted in cassette A1. ELH 5 1:00 PM CDT [facility] MICROSCOPIC DESCRIPTION The slides are labeled [id number] and Sonia Andre. Sections show gastric mucosa without significant epithelial reactivity. There is no significant active inflammation. No Helicobacter organisms are identified on H&E stained slide. Negative for intestinal metaplasia and dysplasia. 5 1:00 PM T [facility] OPERATIVE PROCEDURE 1: ESOPHAGOGASTRODUODENOSCOP Y 5 1:00 PM CDT [facility] CLINICAL INFORMATION A Gastritis, r/o h.pylori Gastritis, r/o h.pylori Chronic gastroesophageal reflux disease without esophagitis [K21.9] K21.9-Chronic gastroesophageal reflux disease without esophagitis 5 1:00 PM CDT [facility] COMMENT Special stain, immunohistochemical, and/or in situ hybridization results are interpreted with controls that demonstrate appropriate staining reactions. Note on use of immunohistochemistry reagents and in situ hybridization probes: These tests were developed and their performance characteristics determined by [facility], Department of Laboratory Medicine. It has not [...] part or completely in the following laboratories: [facility], CLIA #[id number] [address] [place] [address] [facility], CLIA #[id number] [address] [place] [address] [facility], CLIA #[id number] [address] [place] [address] This report was created with the [employer] voice-activated dictation system. Inherent to this system is the possibility of syntax, grammar, punctuation and other errors that could impact the interpretation of the report. If there are interpretative questions about aspects of this report, please contact the performing pathologist. 1:00 PM CDT [facility] Tissue ENTIRE STOMACH / Unknown Collection / Unknown 12/18/2024 8:07 AM CDT 12/18/2024 10:14 AM CDT Comment:Gastritis, r/o h.pyl des us Evy Salazar MD PATHOLOGY/CYTOLOGY ORDERA BLES Final Result [id number] [address] [place] [id number] * (ABNORMAL) MAMMO DIAG UNI LEFT 3D [...] W/HPV (03/15/2021 3:27 PM CDT) CLINICAL INFORMATION [facility] Comment:Routine exam LAST MENSTRUAL PERIOD [facility] Comment:[phone] PREV PAP: [facility] Comment:INFORMATION NOT PROV IDED PREV BX: [facility] Comment:INFORMATION NOT PROV IDED SOURCE [facility] Comment:ENDOCERVIX ADEQUACY: [facility] Comment: Satisfactory for evaluation. Endocervical/transformation zone component present. PAP INTERP [facility] Comment:Negative for intraep ithelial lesion or malignancy. COMMENT [facility] Comment: This Pap test has been evaluated with computer assisted technology. SLUBBER OPERATOR: [facility] Comment: MEF, CT(ASCP) CT screening location: [place] [address] [place] [address] SEE NOTE [facility] Comment: EXPLANATORY NOTE: The Pap is a [...] information. HPV E6/E7 Not Detected Not Detected [facility] Comment: Methodology: Milk Treater-Mediated Amplification This assay detects E6/E7 viral messenger RNA (mRNA) from 14 high-risk HPV types (16,18,31,33,35,39,45,51,52,56,58,59,66,68). The analytical performance characteristics of this assay have been determined by [facility]. The modifications have not been cleared or approved by the FDA. This assay has been validated pursuant to the CLIA regulations and is used for clinical purposes. For additional information, please refer to http://education.[employer]/faq/ZTY328j5 (This link if provided for information/ educational purposes only.) Test Performed at: [facility] [address] [address] Isidoro Kauffman D.O., MPH SL Genital SWAB OF ENDOCERVIX / Unknown 03/15/2021 3:27 PM CDT 03/16/2021 7:18 AM CDT Julia Birch DO PATHOLOGY/CYTOLOGY ORDERABLES Fi nal Result Performing Organization Address City/[facility]/ZIP Co de Phone Number [facility] [address] [place] [address] * HEMOGLOBIN A1C (12/29/2020 3:43 PM CDT) HEMOGLOBIN A1C 5.5 <5.7 % of total Hgb 12/30/2020 10:03 AM CDT [facility] [place] Comment: For the purpose of screening for the presence of diabetes: <5.7% Consistent with the absence of diabetes 5.7-6.4% Consistent with increased risk for diabetes (prediabetes) > or =6.5% Consistent with diabetes This assay result is consistent with a decreased risk of diabetes. Currently, no consensus exists regarding use of hemoglobin A1c for diagnosis of diabetes in children. According to [place] Diabetes Association (ADA) guidelines, hemoglobin A1c <7.0% represents optimal control in non- diabetic patients. Different metrics may apply to specific patient populations. Standards of Medical Care in Diabetes(ADA). Test Performed at: [facility] [address] [place] [address] Isidoro Kauffman D.O., MPH 12/29/2020 3:43 PM CDT 12/30/2020 3:31 AM CDT Lanette Ruiz DO CHEMISTRY ORDERABLES Fin al Result Performing Organization Address [facility] Co de Phone Number [facility] [place] [address] [place] [address] [facility] [place] [address] [place] [address] from Last 3 Months or Most Recently Relevant to Health Maintenance Insurance Advance Directives For more information, please contact: [phone] * Full Code (Latest Code Status on File) Date Activated Date Inactivated Comments 12/18/2024 7:43 AM 12/18/2024 11:01 AM
[2025-03-10] MEDS: ACETAMINOPHEN 500 MG TABLET 1000 MG PO ×3 (06:47→17:04)
[2025-03-10 06:48] LABS: BEDSIDEPREGUCG Negative (Negative)
[2025-03-10] MEDS: LACTATED RINGERS 1,000 ML 30 ML IV CONT ×3 (06:56→12:36)
[2025-03-10] MEDS: KETOROLAC 15 MG/ML VIAL (*BKC) IV PUSH (06:56)
--- NOTE | 2025-03-10 07:09 | WPDHPUPDATE1 ---
History and Physical Update Update Date/Time: 03/10/25 07:09 History and Physical has been reviewed, including an updated exam of the patient. There are NO changes in the patient's condition. Risks, benefits, and alternatives have been discussed and questions answered. Patient agrees to proceed with procedure.
--- NOTE | 2025-03-10 07:25 | P.PNAN_ITS ---
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 Patient Data Age: 44 Gender: F Height: 1.65 m Weight: 102.8 kg Last Vital Signs Temp 98.1 F 03/10/25 06:44 Pulse 82 03/10/25 06:44 Resp 16 03/10/25 06:44 BP 123/72 03/10/25 06:44 Pulse Ox 100 03/10/25 06:44 O2 Del Method Room Air 03/10/25 06:44 Allergies Allergy/AdvReac Type Severity Reaction Status Date / Time No Known Allergies Allergy Verified 03/10/25 06:42 Home Medications ?Medication ?Instructions ?Recorded ?Confirmed ?Type ciprofloxacin HCl 500 mg tablet 500 mg PO .COMPLEX #1 tablet 02/22/25 03/10/25 Rx metronidazole 500 mg tablet 500 mg PO .COMPLEX #3 tabs 02/22/25 03/10/25 Rx tirzepatide (weight loss) 10 10 mg (0.5 mL) subcut WEE KLY #2 mL 03/02/25 03/10/25 Rx mg/0.5 mL subcutaneous pen injector (Zepbound) Laboratory Tests 03/10/25 06:44 POC Urine HCG, Qual Negative (Negative) Patient hx anesthesia problems: none Family hx anesthesia problems: none Results Review: All pre-operative results and documents have been reviewed as part of the pre- operative evaluation. [facility] Past Medical History Medical History Encounter to establish care Class 3 severe obesity due to excess calories with serious comorbidity and body mass index (BMI) of 45.0 to 49.9 in adult Sterilization Family History Family History Mother Heart disease Father Lung cancer Heart disease Hypertension Sibling Hypertension Depression with anxiety Grandparent Cancer Grandparent Alcoholism Social History Social History Smoking packs per day: 1 Smoking cigarettes per day: 20.0 Years smoked: 25 Smoking pack-years: 25.00 Smoking status: Current every day smoker Tobacco type: cigarettes Alcohol intake: current Alcohol use details: 1 every 6 mos Substance use: current Substance use type: marijuana Other substance usage details: vapes once a year Do You Feel Safe in your Home?: Yes Lack of Transportation: No Lack of Food: Sometimes True Current Housing: I Have Housing Concerned About Future Housing: No Difficulty Paying Gas/Electric Bills: No Difficulty Paying for Meds: YES Currently Unemployed: No Education: High School Diploma/GED Difficulty w/ Childcare or Family Care: No Living arrangements: with family Additional living arrangements comments: and In Laws Spiritual care concerns: No Anes - Eval Final PreProcedure Day of Procedure 03/10/25 07:25 Patient weight: obese Heart: regular rate and rhythm Lungs: clear to auscultation Airway: Mallampati scale class II Neurological: alert and oriented Last oral intake: >/= 8 hours ASA classification: III Emergent: no Anesthetic plan: proceed Anesthesia type and monitoring: general ETT and standard monitoring Results Review: All pre-operative results and documents have been reviewed as part of the pre- operative evaluation. Informed Consent: The patient's anesthetic plan and its attendant risks and benefits were discussed with the patient/family/POA. Questions were solicited and answers provided to the satisfaction of the patient/family/POA.
[2025-03-10] MEDS: metroNIDAZOLE 500 MG/ISO 100ML 500 MG/100 ML BAG 100 MG IVPB (07:32)
[2025-03-10] MEDS: ceFAZolin 2 GM in SODIUM CHLORIDE 0.9% IV 50 ML 100 ML IVPB (07:32)
--- NOTE | 2025-03-10 11:10 | S_PTH ---
PATIENT: Sonia Ander LOC: [id number] U#:[id number] AGE/SX: 44/F ROOM: 326 RE03/10/[address]: Bailee Lawson PA-C : 1980 BED: 01 DIS: 03/12/2025 SPEC #: [id number] RECD: 03/10/25 13:21 STATUS: NOAH PEREZ #: [id number] ARY: 03/10/25 11:[address]: Gonzalo Douglas DEPT: [facility] Surgical RECD BY: Silvia Alvarez ENTERED: 03/10/25 13:21 SP TYPE: Surgical OTHR DR: Anastasiia [place], SHAILA Tissues: A - Colon Segment Tumor Procedures: Hematoxylin and Eosin Stain Gross and Microscopic Level 6
--- NOTE | 2025-03-10 11:52 | W.PM.PROC2 ---
Procedure Note - Detailed Date of Procedure 03/10/25 Pre-op Diagnosis tubulovillous adenoma of sigmoid colon Post-op Diagnosis Same Procedure Performed Laparoscopic sigmoid colectomy with colorectal anastomosis, da Peter assisted Surgeon Gonzalo Douglas DO [employer] Mixing Operator Jean-Claude Restrepo MD Anesthesia General and Local (0.5% bupivacaine with epinephrine) Indications This is a 44-year-old woman who presented with findings of a large tubulovillous adenoma in her sigmoid colon. She had undergone her 1st screening colonoscopy on 02/15/2025 and was found to have multiple polyps. There were 2 polyps in the sigmoid colon and 1 of them appeared too large to remove endoscopically. A partial polypectomy was performed and the area was tattooed. Discussions were made with the patient about further treatment options and decision was made to proceed with robotic assisted laparoscopic sigmoid colectomy. Findings Robotic assisted laparoscopic sigmoid colectomy with colorectal anastomosis was performed. The tattooed region was identified on the mid sigmoid colon. The bowel proximal and distal appeared healthy and viable. I performed a sigmoid colectomy with high ligation of the inferior mesenteric artery. The distal resection was right at the rectosigmoid junction and the proximal resection was at the distal descending colon. Indocyanine green was utilized to assess perfusion at the resection margins. A 28 mm EEA stapler was chosen for the anastomosis. An end-to-side colorectal anastomosis was performed. Leak test was then performed at the conclusion and there was no evidence of air bubbles leaking at the anastomosis. Dr. Restrepo assisted with the colorectal anastomosis, proctoscopy, and leak test. Description of Procedure Procedure as well as risks, benefits, and alternatives were discussed with the patient. Written consent was obtained and placed in chart prior to procedure. Patient was brought back to surgical suite. She was placed supine on operating table. Time-out was done to confirm patient and procedure. She was then intubated by the anesthesia department. She was then repositioned into a modified lithotomy position. Her rectal area was prepped and draped in sterile fashion using Betadine prep and her abdomen was prepped and draped in sterile fashion using chlorhexidine prep. A 6 cm transverse mini Pfannenstiel incision was made using a 15 blade scalpel. Electrocautery was used for hemostasis and for dissection through the subcutaneous tissue. The anterior rectus sheath was identified and incised transversely using electrocautery. The rectus muscle was carefully dissected off of the fascia using blunt dissection and electrocautery. The peritoneum was then incised using electrocautery vertically. A small Jair wound protector was then placed and a 5 mm port was placed with the wound protector twisted shut around it. Carbon dioxide insufflation was then utilized for pneumoperitoneum. A 5 mm incision was made in the right upper quadrant and a 5 mm trocar was advanced through the abdominal layers under direct visualization. Camera was inserted and her abdomen was inspected laparoscopically. No immediate abnormalities were identified. The patient was placed in steep Trendelenburg position. A 12 mm incision was made in the right lower quadrant about 2 cm medial to the ASIS, and a 12 mm trocar was inserted under direct visualization. Three more 8 mm incisions were placed and 8 mm ports were placed under direct visualization on an oblique angle going up towards the left upper quadrant. 0.5% bupivacaine with epinephrine was infiltrated locally around each port site. A careful thorough examination of the abdominal cavity was performed. The omentum was reflected cephalad over the stomach. The cecum and small bowel were reflected out of the pelvis. The robotic arms were then brought up to the patient's bedside in secured to the ports. The robotic camera and instruments were then inserted and then I moved over to the robotic console and took control of the camera and instruments. After carefully inspecting the abdominal cavity, I then lifted the rectosigmoid junction anteriorly to tent up the inferior mesenteric artery pedicle. A medial to lateral dissection was performed using scissors with electrocautery. I scored the peritoneum along the undersurface of the superior hemorrhoidal vessel at the sacral promontory and entered into the avascular space. I carefully dissected within the space to dissect the hypogastric nerves posteriorly and dissect laterally until the left ureter was identified. The ureter was identified and protected in its position throughout its course. I continued the dissection proximally on the inferior mesenteric artery using scissors with electrocautery. I carefully encircled the inferior mesenteric artery about 2 cm distal to the origin. I then ensured that the left ureter was still in its proper position and then ligated and divided the inferior mesenteric artery using the vessel sealer. I then continued the medial to lateral dissection until I reached the lateral peritoneal reflection the sigmoid and descending colon. Then also dissected up to the inferior mesenteric vein. The inferior mesenteric vein was dissected back until it was near the inferior edge of the pancreas and then the inferior mesenteric vein was ligated and divided using the vessel sealer. There appeared to be adequate mobilization of the descending colon and I did not require mobilization of the splenic flexure. I then retracted the sigmoid and descending colon medially and took down the lateral peritoneal attachments using scissors with electrocautery. While doing this I entered into the previous plane of dissection from the medial to lateral approach. I ensured that the left ureter was protected in its position throughout its course. I then continued the distal dissection and took down the lateral attachments to the rectosigmoid junction and identified a point on the upper rectum that appeared healthy and viable and a good position for the distal transection. The mesorectum was taken down perpendicular to this point using the vessel sealer. The 60 mm blue load robotic stapler was then advanced across the rectum and then this was clamped and fired. The rectal stump was inspected and appeared healthy and viable. I then identified the descending colon at a point that appeared to come down in the pelvis without any tension. This was chosen as the proximal transection point. The mesocolon was taken down up to this point using the vessel sealer. 3 cc of ICG was then given intravenously and vascular perfusion to the bowel was assessed using near infrared imaging. The site for the proximal transection was clearly visible with adequate perfusion as well as the rectal stump. A colotomy was made the sigmoid colon just distal to this point. A 28 mm EEA anvil was then placed into the abdominal cavity. This was then placed through the colotomy and advanced to the anti mesenteric border of the descending colon about 3 cm proximal to the transection location. The pin of the anvil was advanced through the anti mesenteric border until it punctured through the colon wall and the anvil was ensured that it was lying flat within the distal descending colon. A 60 mm blue load stapler was then advanced across the colon at the transection point and clamped and fired. Specimen was then placed in the right lower quadrant to be removed at the end of procedure. The anvil was secured in place using a 3 0 V lock pursestring suture. The anvil was then brought down into the pelvis and appeared to be coming down into the pelvis without any tension. The EEA sizers were then advanced up to the rectal stump followed by the 28 mm EEA stapler. The pin of the stapler was opened just posterior to the staple line along the right corner of the staple line. The anvil was then attached to the stapler and the stapler was carefully closed. I ensured that the descending colon was not twisted along its path and no other tissue was closed within the stapler. Stapler was then fired to create our EEA anastomosis. Stapler and anvil were carefully removed. I then inspected the staple line and it appeared circumferential and the anastomotic rings appeared circumferential on the stapler. The descending colon was then pinched closed with a laparoscopic grasper. The rigid proctoscope was then inserted into the rectum and the pelvis was filled with sterile saline. Air was insufflated through the rigid proctoscope to dilate the anastomosis. No air bubbles were seen leaking from the anastomosis. The rigid proctoscope was then removed. The lateral and anterior surface of the staple line was reinforced using 3-0 Vicryl seromuscular imbricating sutures. One final inspection was then made around the abdominal cavity and no other abnormalities were identified. A laparoscopic clamp was then placed on the specimen for extraction. The camera and instruments were removed and the robotic arms were disengaged from the ports. The patient was then flattened out in bed. One final inspection was made around the abdominal cavity and no other abnormalities were noted. The 12 mm port was removed and the fascia was then closed using an 0 Vicryl suture with a Kishore-Spike cone. The specimen was then advanced to the Pfannenstiel incision and then delivered through the wound protector and removed. I then inspected the abdomen around the Pfannenstiel incision and no other abnormalities were noted. The wound protector was then removed. The peritoneum was closed using 0 Vicryl running suture. The rectus muscle was reapproximated in the midline using 0 Vicryl simple interrupted sutures. The anterior rectus sheath was then reapproximated using 0 PDS running absorbable suture. Sameera's fascia was reapproximated using 3-0 Vicryl simple interrupted sutures. The remaining ports were then removed. The skin of the incisions was then reapproximated using 4-0 Monocryl running subcuticular suture. Exofin glue was then applied on top. The patient was then awakened from anesthesia, extubated, and transferred to recovery. Estimated Blood Loss 20 Pathology Yes (Sigmoid colon) Complications No immediate complications Condition Stable Disposition Floor [facility] [place] Billing Surgery - Charge Forward: Surgery Billing
[2025-03-10] MEDS: fentaNYL CITRATE INJ (*CRX) 100 MCG/2 ML VIAL 25 MCG IV PUSH ×6 (12:36→13:25)
--- NOTE | 2025-03-10 14:02 | ADMGEN ---
This patient, Sonia Andre, was admitted to -. Patient/family oriented to hospital policies and general routines including ID bracelet, bed and alarms, visiting hours, pain management, procedures, bathroom and other care routines, personal items, smoking policy, room service/diet, and visiting hours. Information on how to activate the Rapid Response Team has been discussed. Patient/Family are encouraged to report perceived risks to care and to ask questions if they do not understand what they are told or what they should do.
[2025-03-10] MEDS: LACTATED RINGERS 1,000 ML 100 ML IV CONT (14:15)
[2025-03-10] MEDS: oxyCODONE HCL (*CRX) 5 MG TAB IR PO ×2 (15:31→20:33)
[2025-03-11] MEDS: oxyCODONE HCL (*CRX) 5 MG TAB IR PO ×4 (00:08→16:17)
[2025-03-11 05:11] VITALS: BP 141/59; PULSE 85; RESP 16; TEMP 37.2; O2SAT 99
[2025-03-11 06:18] LABS: Hematocrit 41.0 % (37.0-47.0); Hemoglobin 13.3 g/dL (12.0-15.0); Mean Corpuscular HGB Conc 32.4 g/dl (32-36); Mean Corpuscular Hemoglobin 30.2 pg (26-34); Mean Corpuscular Volume 93.0 fl (80-100); Platelet Count Result 210 k/mm3 (150-375); Red Blood Count 4.41 M/mm3 (4.2-5.4); White Blood Count 16.5 K/mm3 (4.5-10.0)
[2025-03-11 06:40] LABS: Anion Gap 9 mmol/L (4-12); Blood Urea Nitrogen 5 mg/dL (7-17); Calcium 9.0 mg/dL (8.4-10.2); Carbon Dioxide 25 mmol/L (22-30); Chloride 105 mmol/L (98-107); Estimated CRCL calculation 138 ml/min; Estimated Glomerular Filt Rate > 60; Glucose 121 mg/dL (65-110); Potassium 3.1 mmol/L (3.4-5.0); Sodium 139 mmol/L (137-145)
[2025-03-11] MEDS: ENOXAPARIN 40 MG/0.4 ML SYRINGE SUB-Q (08:08)
[2025-03-11] MEDS: POTASSIUM CHLORIDE 20 MEQ PACKET (FOR LIQUID) 40 MEQ PO (08:44)
--- NOTE | 2025-03-11 10:11 | P.PNGS_ITS ---
Progress Note: A&P Assessment and Plan (1) Tubulovillous adenoma of colon: Code(s): D12.6 - Benign neoplasm of colon, unspecified Status: Acute Assessment and Plan: * POD1 s/p laparoscopic sigmoid colectomy with colorectal anastomosis, da cristiane assisted. Patient tolerated the procedure well. She notes some RLQ pain and incisional pain that is managed with oxycodone. Voiding appropriately. No nausea or vomiting with full liquid diet. * Maintenance IV fluids stopped. * Encourage ambulation. * We will continue to follow with serial abdominal exams and labs. Plan Discussed patient's case and plan of care with Dr. Douglas. Subjective Subjective Date/Time Seen: 03/11/25 10:11 Post Op day: 1 (Laparoscopic sigmoid colectomy with colorectal anastomosis, da cristiane assisted) Patient reports: no new complaints, tolerating liquids well, no flatus and no bowel movement Interval history: Patient is doing well. Complains of some incisional pain and RLQ pain. She has b een walking the halls. No nausea or vomiting. WBC 16.5, likely postop reaction. Exam Const: General: comfortable and no acute distress Eyes: General: appearance normal, both eyes and all related structures Neck: Neck: supple Resp: Effort & Inspection: normal respiratory effort Cardio: Rate: regular rate GI: Inspection: non-distended GI Palp: Yes Soft to palpation and Yes Tenderness to palpation present (GI) (pain to RLQ pannus. Tenderness around incisions) Auscultation: abnormal bowel sounds (BS+ on right side. BS quiet on left side) Other: Incisions clean dry and intact. No signs of infection, dehiscence, or wound necrosis. Objective Data Vital Signs Vital Signs: Vital Signs - 24 hr 03/10/25 11:40 03/10/25 11:55 03/10/25 12:10 Temperature 97.8 F Pulse Rate 77 80 75 Respiratory Rate 12 12 12 Blood Pressure 111/61 101/63 116/69 Pulse Oximetry 100 100 100 Oxygen Delivery Simple Face Mask Simple Face Mask Simple Face Mask Oxygen Flow Rate 7 7 7 03/10/25 12:25 03/10/25 12:40 03/10/25 12:55 Temperature Pulse Rate 78 84 78 Respiratory Rate 16 16 14 Blood Pressure 114/66 125/79 117/67 Pulse Oximetry 98 97 93 Oxygen Delivery Room Air Room Air Room Air Oxygen Flow Rate 03/10/25 13:10 03/10/25 13:25 03/10/25 13:40 Temperature Pulse Rate 79 74 77 Respiratory Rate 14 12 12 Blood Pressure 116/67 126/70 126/72 Pulse Oximetry 97 97 95 Oxygen Delivery Room Air Room Air Room Air Oxygen Flow Rate 03/10/25 13:47 03/10/25 14:02 03/10/25 14:21 Temperature 96.5 F L Pulse Rate 76 74 Respiratory Rate 16 18 Blood Pressure 109/64 135/70 Pulse Oximetry 99 97 Oxygen Delivery Room Air Oxygen Flow Rate 03/10/25 14:32 03/10/25 15:32 03/10/25 19:32 Temperature 96.6 F L 96.6 F L 97.7 F Pulse Rate 79 77 84 Respiratory Rate 18 18 16 Blood Pressure 112/65 119/62 122/75 Pulse Oximetry 99 99 97 Oxygen Delivery Oxygen Flow Rate 03/10/25 20:00 03/10/25 23:59 03/11/25 05:11 Temperature 97.8 F 98.9 F Pulse Rate 84 69 85 Respiratory Rate 16 16 16 Blood Pressure 135/79 141/59 H Pulse Oximetry 97 98 99 Oxygen Delivery Room Air Oxygen Flow Rate Intake/Output Intake/Output: Intake & Output 03/08/25 03/09/25 03/10/25 03/11/25 23:59 23:59 23:59 23:59 Intake Total 1490 1290 Balance 1490 1290 Meds/Results Medications: Active Medications Generic Name Dose Route Start Last Admin Trade Name Freq PRN Reason Stop Dose Admin Acetaminophen 1,000 mg 03/10/25 13:47 03/11/25 06:13 Acetaminophen 500 Mg Tablet PO Not Given Q6HR [facility] Enoxaparin Sodium 40 mg 03/11/25 09:00 03/11/25 08:08 Enoxaparin 40 Mg/0.4 Ml Syringe SUB-Q 40 mg DAILY [facility] Administration Morphine Sulfate 2 mg 03/10/25 13:47 Morphine Sulfate (*Crx) 2 Mg/Ml Inj IV PUSH Q2H PRN Breakthrough Pain Rated 4-6 or NPO Morphine Sulfate 4 mg 03/10/25 13:47 Morphine Sulfate (*Crx) 4 Mg/Ml Inj IV PUSH Q2H PRN Breakthrough Pain Rated 7-10 or NPO Naloxone HCl 0.1 mg 03/10/25 13:47 Naloxone Hcl 0.4 Mg/Ml Vial IV PUSH Q2M PRN Opiate Reversal Ondansetron HCl 4 mg 03/10/25 13:47 Ondansetron Inj 4 Mg/2 Ml Vial IV PUSH Q4H PRN Nausea And Vomiting Oxycodone HCl 2.5 mg 03/10/25 13:47 Oxycodone Hcl (*Crx) 2.5 Mg Tab Ir PO Q4H PRN Pain Rated 4-6 Oxycodone HCl 5 mg 03/10/25 13:47 03/11/25 06:10 Oxycodone Hcl (*Crx) 5 Mg Tab Ir PO 5 mg Q4H PRN Administration Pain Rated 7-10 Labs Labs: Laboratory Results - last 24 hr 03/11/25 05:56 WBC 16.5 H RBC 4.41 Hgb 13.3 Hct 41.0 MCV 93.0 MCH 30.2 MCHC 32.4 RDW 13.1 Plt Count 210 MPV 11.6 H Sodium 139 Potassium 3.1 L Chloride 105 Carbon Dioxide 25 Anion Gap 9 BUN 5 L D Creatinine 0.52 L Estim Creat Clear Calc 138 Estimated GFR > 60 Glucose 121 H Calcium 9.0
[2025-03-11] MEDS: ACETAMINOPHEN 500 MG TABLET 1000 MG PO ×3 (11:03→23:03)
[2025-03-11 11:32] VITALS: BP 130/72; PULSE 78; RESP 20; TEMP 36.7; O2SAT 98
--- NOTE | 2025-03-11 14:47 | WPDANESPN ---
Anes - Prog Note Post-Op Date/Time: 03/11/25 14:47 Cardiovascular status: normal Respiratory status: normal Airway patency: baseline Mental status: baseline Vital Signs: Last Vital Signs Temp 36.7 C 03/11/25 11:32 Pulse 78 03/11/25 11:32 Resp 20 03/11/25 11:32 BP 130/72 03/11/25 11:32 Pulse Ox 98 03/11/25 11:32 O2 Del Method Room Air 03/11/25 08:00 O2 Flow Rate 7 03/10/25 12:10 Pain Score (VAS): 3 I/O: Intake & Output 03/10/25 03/11/25 03/11/25 23:59 07:59 15:59 Intake Total 240 1050 358 Balance 240 1050 358 Laboratory Tests 03/11/25 05:56 03/11/25 05:56 03/11/25 05:56 WBC 16.5 H RBC 4.41 Hgb 13.3 Hct 41.0 MCV 93.0 MCH 30.2 MCHC 32.4 RDW 13.1 Plt Count 210 MPV 11.6 H Sodium 139 Potassium 3.1 L Chloride 105 Carbon Dioxide 25 Anion Gap 9 BUN 5 L D Creatinine 0.52 L Estim Creat Clear Calc 138 Estimated GFR > 60 Glucose 121 H Calcium 9.0 Patient Feedback: Patient satisfied with anesthetic care.
[2025-03-11 15:32] VITALS: BP 118/67; PULSE 66; RESP 20; TEMP 36.6; O2SAT 100
[2025-03-11 19:41] VITALS: BP 113/49; PULSE 78; RESP 16; TEMP 36.9; O2SAT 98
[2025-03-12] MEDS: ACETAMINOPHEN 500 MG TABLET 1000 MG PO ×2 (05:22→11:00)
[2025-03-12 05:29] VITALS: BP 108/88; PULSE 79; RESP 16; TEMP 36.4; O2SAT 97
[2025-03-12 06:51] LABS: Hematocrit 38.0 % (37.0-47.0); Hemoglobin 12.2 g/dL (12.0-15.0); Mean Corpuscular HGB Conc 32.1 g/dl (32-36); Mean Corpuscular Hemoglobin 30.3 pg (26-34); Mean Corpuscular Volume 94.3 fl (80-100); Platelet Count Result 186 k/mm3 (150-375); Red Blood Count 4.03 M/mm3 (4.2-5.4); White Blood Count 11.0 K/mm3 (4.5-10.0)
[2025-03-12 07:21] LABS: Anion Gap 4 mmol/L (4-12); Blood Urea Nitrogen 8 mg/dL (7-17); Calcium 8.6 mg/dL (8.4-10.2); Carbon Dioxide 27 mmol/L (22-30); Chloride 106 mmol/L (98-107); Estimated CRCL calculation 127 ml/min; Estimated Glomerular Filt Rate > 60; Glucose 103 mg/dL (65-110); Magnesium 1.8 mg/dL (1.6-2.3); Potassium 3.8 mmol/L (3.4-5.0); Sodium 137 mmol/L (137-145)
[2025-03-12 08:00] VITALS: O2SAT 97
[2025-03-12] MEDS: ENOXAPARIN 40 MG/0.4 ML SYRINGE SUB-Q (08:45)
[2025-03-12] MEDS: oxyCODONE HCL (*CRX) 5 MG TAB IR PO (12:01)
--- NOTE | 2025-03-12 15:27 | PM.DS ---
DS: Admitting Diagnosis Discharge Date 03/12/25 Admitting Diagnosis Tubulovillous adenoma of sigmoid colon DS: Discharge Diagnosis Discharge Diagnosis (1) Tubulovillous adenoma of colon: Code(s): D12.6 - Benign neoplasm of colon, unspecified Status: Acute (2) Tobacco abuse: Code(s): Z72.0 - Tobacco use Status: Acute DS: Summary Hospital Course Reason for hospitalization: This is a 44-year-old woman who presented with findings of a large tubulovillous adenoma in her sigmoid colon. She had undergone her 1st screening colonoscopy on 02/15/2025 and was found to have multiple polyps. There were 2 polyps in the sigmoid colon and 1 of them appeared too large to remove endoscopically. A partial polypectomy was performed and the area was tattooed. Discussions were made with the patient about further treatment options and decision was made to proceed with robotic assisted laparoscopic sigmoid colectomy. Hospital Course: Patient presented to the hospital on 03/10/2025 for a scheduled laparoscopic sigmoid colectomy with colorectal anastomosis, da cristiane assisted. The patient tolerated the procedure well. She was awakened for any anesthesia in the OR, extubated, and transferred to recovery. Patient was tolerating a full liquid diet that night. Following day patient noted some right lower quadrant pain, as well as incisional pain that was able to be managed with oxycodone. Patient was voiding appropriately. No nausea or vomiting with full liquid diet. Her maintenance IV fluids were stopped. WBC 16.5, but likely postop reaction. Patient ambulating well without assistance. Later that night her diet was advanced to a low-fiber diet. She tolerated this well without nausea or vomiting. On the morning of 03/12/2025 patient continued to do well. WBC count down to 11.0. All other labs remained stable. Vital signs remained stable throughout stay. Patient noted minimal abdominal pain to incisions and also to right lower quadrant. Reported that she had multiple bowel movements overnight. Surgically stable for discharge. All questions were answered. Patient is already scheduled for follow-up appointment on 03/22/2025. Status at Discharge Functional status at discharge: independent ambulation Time Spent with Patient Time attestation: Total time spent providing and/or coordinating discharge services: Time spent: Less than 30 minutes Exam Const: General: comfortable and no acute distress Eyes: General: appearance normal, both eyes and all related structures Neck: Neck: supple Resp: Effort & Inspection: normal respiratory effort Cardio: Rate: regular rate GI: Inspection: non-distended GI Palp: Yes Soft to palpation and Yes Tenderness to palpation present (GI) (Incisional and to right lower quadrant.) Skin: General skin exam: normal color and no rashes or lesions noted Neuro: Sensory Exam: normal sensation Extrem: General: normal to inspection Psych: Mental Status: mental status grossly normal DS: Data Data Completed and Pending Completed studies during hospitalization: Pending at discharge 03/10/25 11:10 Surgical [PTH] Routine Labs on day of discharge: Labs from last 24 hours 03/12/25 06:08 WBC 11.0 H RBC 4.03 L Hgb 12.2 Hct 38.0 MCV 94.3 MCH 30.3 MCHC 32.1 RDW 13.3 Plt Count 186 MPV 12.1 H Sodium 137 Potassium 3.8 Chloride 106 Carbon Dioxide 27 Anion Gap 4 BUN 8 Creatinine 0.58 L Estim Creat Clear Calc 127 Estimated GFR > 60 Glucose 103 Calcium 8.6 Magnesium 1.8 Procedures/Treatments: Procedures Operation Date: 03/10/25 07:30 Actual Procedure Side Surgeon p Laparoscopic Sigmoid Colectomy, Davinci Assisted Not Applicable Gonzalo Douglas, DO Discharge Plan Discharge Attending physician on discharge: Gonzalo Douglas Discharging Clinician: Bailee Lawson Patient Disposition: Home Activity: may shower Diet: low fiber Wound Care Instructions: follow printed instructions Discharge Instructions: Remove the Scopolamine patch that was placed behind your ear in 72 hours or less. Wash your hands after touching. No driving for 3 days or while taking narcotic pain medication. No heaving lifting >10-15 lbs for the next 2 weeks or until otherwise instructed by Dr. Douglas. No soaking in a bath, hot tub, pool, or other body of water for the next two weeks. OK to shower and rinse the incisions with mild soap and water. Pain medication prescriptions will be sent to your pharmacy. Take as instructed. Rotate Tylenol and Ibuprofen as needed. Resume previous home medications. Call the office if you notice any bleeding, increased pain, or redness to the incisions. Call the office if you develop nausea/vomiting or fever. Keep regularly scheduled appointment on 03/22/25. Maintain a low fiber diet for the next week (pamphlet attached). After that, you may resume regular diet. Up and walking 10-30 minutes 3x per day. Revised November 2018 Patient Instructions: Low Fiber Diet (DC), Cigarette Smoking and Your Health (GEN) Patient Language: Cambodian Stand Alone Forms: General Discharge Instructions Follow-up/Referrals: Gonzalo Douglas DO [Physician, General Surgery] - Keep Reg. Scheduled Appt. Referral Note: 03/22/25 Discharge Medications: New oxycodone-acetaminophen [Endocet] 5-325 mg tablet 0.5 - 1 tablet PO Q4H PRN (Reason: pain) Qty: 10 0RF Continued Zepbound 10 mg/0.5 mL pen injector 10 mg subcut WEEKLY Qty: 2 0RF Patient Comments: HOLD AFTER 02/26/25 till post op Discontinued metronidazole 500 mg tablet 500 mg PO .COMPLEX Qty: 3 0RF Rx Instructions: 500 mg orally take 1 tablet by mouth at 1:00pm, 2:00pm & 11:00pm day before surgery; ciprofloxacin HCl 500 mg tablet 500 mg PO .COMPLEX Qty: 1 0RF Rx Instructions: 500 mg orally take 1 tablet by mouth at 2:00pm day before surgery; Date of admission: 03/10/25 13:47 Primary Care Provider: Anastasiia Hill Admitting Provider: Gonzalo Douglas Attending physician on admission: Gonzalo Douglas Condition: Improved
== END 2025-03-12 12:11 | disposition home or self-care (01) | DRG 330 ==
LOC: ANH3MEDSUR 14:03
PROVIDERS: Admitting Provider Surgery; PCP Clinical Nurse Specialist
PROC: 0DTN4ZZ Resection of Sigmoid Colon, Percutaneous Endoscopic Approach (ICD-10-PCS; principal; 2025-03-10 07:30)
DX: D12.5 Benign neoplasm of sigmoid colon (principal); Z68.41 Body mass index [BMI] 40.0-44.9, adult; E66.813 Obesity, class 3; F17.210 Nicotine dependence, cigarettes, uncomplicated; Z79.85 Long-term (current) use of injectable non-insulin antidiabetic drugs; Z79.899 Other long term (current) drug therapy
CPT/HCPCS: 36415; 80048; 83735; 85027; 88309; J0690; A9270; C1729; J1100; J1171; J1650; J1836; J1885; J2003; J2250; J2405; J2704; J3010; J7030; J7120